=== PATIENT | male | born 1955 | race Caucasian/White ===

== ENCOUNTER 2016-11-29 14:58 | Inpatient (IN) | payer OTHER ==
[~2016-11-29] VITALS: Ht 177.8 cm; Wt 65.8 kg
[2016-11-29 15:02] VITALS: O2SAT 95
[2016-11-29 16:03] LABS: BENZODIAZEPINE, URINE NEG (NEG); COCAINE,URINE NEG (NEG); PHENCYCLIDINE, URINE NEG (NEG)
[2016-11-29] MEDS ORDERED: SERT50TA PO (16:05)
[2016-11-29] MEDS ORDERED: BUPR100T8 PO (16:05)
[2016-11-29 16:08] LABS: BASO % 0.4 %; BASO ABS # 0.02 K/uL (0-0.2); COMPLETE YES; EOS % 0.7 %; HEMATOCRIT 39.8 % (42-52); IG% 0.2 %; LYMPH % 18.9 %; LYMPH ABS # 1.06 K/uL (1.2-3.4); MEAN CELL VOLUME 88.1 fL (80-100); MEAN CORPUSCULAR HEMOGLOBIN 31.2 pg (25-34); MEAN CORPUSCULAR HGB CONC 35.4 g/dl (32-36); MONO % 8.9 %; NEUT % 70.9 %; PLATELET COUNT 138 K/uL (130-400); RED BLOOD COUNT 4.52 M/uL (4.7-6.1)
[2016-11-29 16:27] LABS: BUN/CREATININE RATIO 12.8 (10-20); CALCIUM 8.8 mg/dl (8.5-10.1); CREATININE 1.5 mg/dl (0.60-1.40); POTASSIUM 3.7 mmol/L (3.5-5.1)
[2016-11-29 16:37] LABS: ALB/GLOB RATIO 1.2 (0.9-2); THYROID STIMULATING HORMONE 2.41 uIu/ml (0.300-4.500)
[2016-11-29 17:22] LABS: ACETAMINOPHEN < 2 ug/ml (10-30)
[2016-11-29 17:29] LABS: URINE APPEARANCE CLEAR (CLEAR); URINE BILIRUBIN NEG (NEG); URINE COLOR YELLOW; URINE NITRITE NEG (NEG); URINE PH 6.5 (4.5-7.5); URINE SPECIFIC GRAVITY 1.006 (1.000-1.030); UROBILINOGEN NEG (NEG); ZZUR CULT IF INDIC CLEAN CATCH NO
[2016-11-29 17:30] LABS: MANUAL MICROSCOPIC REQUIRED? NO; REVIEW REQ? NO
[2016-11-29] MEDS ORDERED: BISMUTH SUBSALICYLATE PER ML OMNICELL CHARGE PO PRN (17:30)
[2016-11-29] MEDS ORDERED: ALUMINUM/MAGNESIUM SUSP 30 ML UDC PO PRN (17:30)
[2016-11-29] MEDS ORDERED: SODIUM CHLORIDE 0.65% NA SOLN 45 ML (OCEAN) PRN (17:30)
[2016-11-29] MEDS ORDERED: ACETAMINOPHEN 325 MG TAB PO PRN (17:30)
[2016-11-29] MEDS ORDERED: MAGNESIUM HYDROXIDE SUSP 30 ML UDC PO PRN (17:30)
[2016-11-29] MEDS ORDERED: RISPERIDONE 1 MG TAB PO ONE (17:30)
[2016-11-29] MEDS ORDERED: hydrOXYzine HCL 25 MG TAB PO PRN ×2 (17:30)
--- NOTE | 2016-11-29 17:36 | EMERGENCY ROOM VISIT NOTE ---
History Report prepared by Yanira: Duc Lopez Under the Supervision of: Dr. Joel San D.O. First contact with patient: 15:14 Chief Complaint: MENTAL HEALTH EVALUATION Stated Complaint: SUICIDAL THOUGHTS-CONOR History of Present Illness The patient is a 61 year old male who presents to the Emergency Room for a mental health evaluation. Last week, the patient went to his [facility] and received a lot of information about identity theft. Ever since then, he has been very paranoid and believes that someone has stolen his identity through his computer. He also believes that someone is spying on him as well. Because of this, he is having suicidal thoughts by cutting his wrists. He denies any abnormal physical symptoms at this time. He went to [place] today and received an US procedure, which the results of are not back. He was sent here by his therapist for further evaluation. Source of History: patient Onset: 1 week Position: other (Mental Health) Symptom Intensity: moderate Quality: other (Suicidal Ideation) Timing: worsening Note: He denies any abnormal physical symptoms. Review of Systems See HPI for pertinent positives & negatives. A total of 10 systems reviewed and were otherwise negative. Family History Omitted secondary to the patient's age. Social History Smoking Status: Never Smoker Smokeless Tobacco Use: Yes Alcohol Use: occasionally Drug Use: none Occupation Status: retired Current/Historical Medications Scheduled Bupropion (Wellbutrin Sr), 100 MG PO QAM Sertraline (Zoloft), 50 MG PO QAM Allergies Coded Allergies: No Known Allergies (Unverified , 11/29/16) Physical Exam Vital Signs Date Time Temp Pulse Resp B/P (MAP) Pulse Ox O2 Delivery O2 Flow Rate FiO2 11/29/16 15:02 36.6 64 18 110/67 95 Room Air Physical Exam CONSTITUTIONAL/VITAL SIGNS: Reviewed / noted above. GENERAL: Non-toxic in appearance. INTEGUMENTARY: Warm, dry, and Richards. HEAD: Normocephalic. EYES: without scleral icterus or trauma. ENT/OROPHARYNX: clear and moist. LYMPHADENOPATHY/NECK: Is supple without lymphadenopathy or meningismus. RESPIRATORY: Lungs clear and equal. CARDIOVASCULAR: Regular rate and rhythm. GI/ABDOMEN: Soft and nontender. No organomegaly or pulsatile mass. No rebound or guarding. Normal bowel sounds. EXTREMITIES: Warm and well perfused. BACK: No CVA tenderness. NEUROLOGICAL: Intact without focal deficits. PSYCHIATRIC: normal affect. Patient admits suicidal ideation with a plan. MUSCULOSKELETAL: Normally developed with good muscle tone. Medical Decision & Procedures Laboratory Results 11/29/16 15:50 Red Blood Count 4.52, Mean Corpuscular Volume 88.1, Mean Corpuscular Hemoglobin 31.2, Mean Corpuscular Hemoglobin Concent 35.4, Mean Platelet Volume 11.0, Neutrophils (%) (Auto) 70.9, Lymphocytes (%) (Auto) 18.9, Monocytes (%) (Auto) 8.9, Eosinophils (%) (Auto) 0.7, Basophils (%) (Auto) 0.4, Neutrophils # (Auto) 3.97, Lymphocytes # (Auto) 1.06, Monocytes # (Auto) 0.50, Eosinophils # (Auto) 0.04, Basophils # (Auto) 0.02 11/29/16 15:50 Test 11/29/16 15:30 11/29/16 15:50 Urine Color YELLOW Urine Appearance CLEAR (CLEAR) Urine pH 6.5 (4.5-7.5) Urine Specific Mccrory 1.006 (1.000-1.030) Urine Protein NEG (NEG) Urine Glucose (UA) NEG (NEG) Urine Ketones NEG (NEG) Urine Occult Blood NEG (NEG) Urine Nitrite NEG (NEG) Urine Bilirubin NEG (NEG) Urine Urobilinogen NEG (NEG) Urine Leukocyte Esterase NEG (NEG) Urine Opiates Screen NEG (NEG) Urine Methadone, Qualitative NEG (NEG) Urine Barbiturates NEG (NEG) Urine Phencyclidine (PCP) Level NEG (NEG) Ur Amphetamine/Methamphetamine NEG (NEG) MDMA (Ecstasy) Screen POS (NEG) Urine Benzodiazepines Screen NEG (NEG) Urine Cocaine Metabolite NEG (NEG) Urine Marijuana (THC) NEG (NEG) White Blood Count 5.60 K/uL (4.8-10.8) Red Blood Count 4.52 M/uL (4.7-6.1) Hemoglobin 14.1 g/dL (14.0-18.0) Hematocrit 39.8 % (42-52) Mean Corpuscular Volume 88.1 fL (80-100) Mean Corpuscular Hemoglobin 31.2 pg (25-34) Mean Corpuscular Hemoglobin Concent 35.4 g/dl (32-36) Platelet Count 138 K/uL (130-400) Mean Platelet Volume 11.0 fL (7.4-10.4) Neutrophils (%) (Auto) 70.9 % Lymphocytes (%) (Auto) 18.9 % Monocytes (%) (Auto) 8.9 % Eosinophils (%) (Auto) 0.7 % Basophils (%) (Auto) 0.4 % Neutrophils # (Auto) 3.97 K/uL (1.4-6.5) Lymphocytes # (Auto) 1.06 K/uL (1.2-3.4) Monocytes # (Auto) 0.50 K/uL (0.11-0.59) Eosinophils # (Auto) 0.04 K/uL (0-0.5) Basophils # (Auto) 0.02 K/uL (0-0.2) RDW Standard Deviation 40.5 fL (36.4-46.3) RDW Coefficient of Variation 12.6 % (11.5-14.5) Immature Granulocyte % (Auto) 0.2 % Immature Granulocyte # (Auto) 0.01 K/uL (0.00-0.02) Anion Gap 3.0 mmol/L (3-11) Est Creatinine Clear Calc Drug Dose 46.9 ml/min Estimated GFR () 56.6 Estimated GFR (Non- 48.8 BUN/Creatinine Ratio 12.8 (10-20) Calcium Level 8.8 mg/dl (8.5-10.1) Total Bilirubin 0.6 mg/dl (0.2-1) Aspartate Amino Transf (AST/SGOT) 43 U/L (15-37) Alanine Aminotransferase (ALT/SGPT) 31 U/L (12-78) Alkaline Phosphatase 54 U/L (45-117) Total Protein 6.9 gm/dl (6.4-8.2) Albumin 3.7 gm/dl (3.4-5.0) Globulin 3.2 gm/dl (2.5-4.0) Albumin/Globulin Ratio 1.2 (0.9-2) Thyroid Stimulating Hormone (TSH) 2.410 uIu/ml (0.300-4.500) Salicylates Level < 1.7 mg/dl (2.8-20) Acetaminophen Level < 2 ug/ml (10-30) Ethyl Alcohol mg/dL < 3.0 mg/dl (0-3) Laboratory results as stated above per my review. Medications Administered Medications (Trade) Dose Ordered Sig/Fredy Route Start Time Stop Time Status Last Admin Dose Admin Risperidone (Risperdal Tab) 1 mg NOW ONCE PO 11/29/16 17:30 11/29/16 17:31 11/29/16 17:26 1 MG ED Course 1514: Previous medical records were reviewed. The patient was evaluated in room A8. A complete history and physical examination was performed. 1720: Risperdal 1mg PO. 1730: Admitted to . Medical Decision Differential includes toxic ingestions, self-mutilation, suicidal ideation, suicide attempt, and depression. This is a 61-year-old male who presents to the ED with a chief complaint of some paranoia as well as suicidal thoughts. The patient is thinking about cutting his wrists. He states that he feels that his identity has been stolen. He was sent in by his therapist for psychiatric evaluation. The patient has no other significant complaints. He has not had drugs or alcohol recently. His exam was unremarkable. The patient is medically cleared for psychiatric evaluation. Accepted to 3 S. Medication Reconcilliation Current Medication List: was personally reviewed by me Blood Pressure Screening Patient's blood pressure: Normal blood pressure Blood pressure disposition: Did not require urgent referral Impression Primary Impression: Suicidal ideation Scribe Attestation The scribe's documentation has been prepared under my direction and personally reviewed by me in its entirety. I confirm that the note above accurately reflects all work, treatment, procedures, and medical decision making performed by me. Departure Information Dispostion Mental Health Acute Care Referrals No Doctor, Assigned (PCP) Forms HOME CARE DOCUMENTATION FORM, IMPORTANT VISIT INFORMATION Patient Instructions My [facility]
[2016-11-29] MEDS ORDERED: NURSING VERBAL MED ORDER ONE (17:45)
[2016-11-29] MEDS ORDERED: NICOTINE POLACRILEX 2 MG GUM MT PRN (18:00)
[2016-11-29 18:01] VITALS: BP 110/67; PULSE 72; TEMP 36.6; Ht 177.8 cm; Wt 65.8 kg
[2016-11-29] MEDS: NICOTINE 14 MG/24 HR TDSY TD SCH (19:01)
[2016-11-30 06:23] VITALS: BP_SYST 105; BP_SYST 94; BP_DIAS 62; BP_DIAS 68; PULSE 59; PULSE 76; TEMP 36.7
[2016-11-30] MEDS ORDERED: BuPROPion SR 100 MG TABCR PO SCH (09:00)
[2016-11-30] MEDS: NICOTINE 14 MG/24 HR TDSY TD SCH (09:15)
[2016-11-30] MEDS: SERTRALINE HCL 50 MG TAB PO SCH (09:15)
--- NOTE | 2016-11-30 10:51 | Medical Student: BHU Only ---
Psychiatric Evaluation Chief Complaint "I'm concerned about being hacked and getting my identity stolen." History of Present Illness Patient came to the ED yesterday brought to the hospital by his [id number]-tyv, who lives with he and his . He was recommended to come in yesterday after seeing his nurse practitioner at [place]. He is a poor historian but mentions a recent history about being hacked and concerned about someone stealing his identity and social security number. He mentions he has never done a credit check. He also developed thoughts of suicide on 2-3 days ago and had a plan to cut his wrists. He admits to being anxious recently, and mentions that he has been "fidgety, and unable to sleep". Past Psychiatric History Prior OP Treatment: Unknown, has been on [place] Prior Psych Hospitalizations: Yes, 2-3 times in [place], 1 time in [place] Access to a Gun: No Suicide Attempts: First; none previously Past Medication Trials: Unknown Past Medical/Surgical History (1) Anemia (2) Stage 3 Kidney disease Allergies Allergies: Patient said no known allergies. Home Medications Scheduled Bupropion (Wellbutrin Sr), 100 MG PO QAM Sertraline (Zoloft), 50 MG PO QAM Family History Mother had cancer Alcohol Use Alcohol Use In Past 12 Months: Drinks 1 beer a week, "on Fridays with Pizza" Smoking Use Smoking Status: Does not smoke Substance History Denied recent history of illicit substance abuse or prescription drug abuse. Personal History Lives in: [place] (near [place]) Work History: Retired driver examiner Relationship History: Children: No kids Spiritual Affiliation: Yazdanism/Baptism Legal History: Unknown Psychological Trauma History: No Examination Physical Examination Exam performed by Dr. Joel San D.O. in the emergency department yesterday has been reviewed and accepted as medical clearance for our unit. Mental Examination During interview pt is: cooperative Appearance: fair groomed Eye contact is: good Motor behavior is: slightly restless Speech: normal volume, normal tone, slow rate Affect: congruent with mood Mood is: anxious Thought process: goal directed, minimal in quantity Thought content: reality based, some minor paranoia Suicidal thought are: absent today Homicidal thoughts are: Absent Hallucinations: No auditory or visual hallucinations Cognition: 3 of 5 on mini-cog assessment Intelligence estimated to be: average Insight: poor Judgement: poor Inventory Assets Strengths: has interests, enjoys fishing with , active with going to taoism Needs: poor memory of diagnoses and past medications Risk Factors Assessment : Yes /single/: No Higher / Fall in social status: No Access to guns: No Health problems: Yes Mental Health Diagnoses: Yes Substance use disorders: No Previous attempt: Yes Previous psychiatric stay: Yes Hopelessness: No Smoker: No Protective Factors Assessment Zoroastrian beliefs: Yes : Yes Responsible for young children: No Employed: No Stable relationships: Yes Supportive family: Yes Good rapport with provider: Yes Assessment/Plan (1) Schizoaffective disorder, depressive features continue risperidone treatment order lipid panel and fasting blood glucose level Other: (2) Stage 3 renal disease (3) Anemia Date of Service: Nov 30, 2016.
--- NOTE | 2016-11-30 13:17 | Psychiatric History & Physical ---
History Date of Service Nov 30, 2016. Identifying Data Jhonathan Henriquez is a 61-year-old male who currently lives in [facility] with his and [id number]. Jhonathan Henriquez was admitted on a 201 voluntary commitment. Patient is admitted from the ED, brought by family at the recommendation of [place]. The patient is a limited historian. Chief Complaint "I was too focussed on computers". History of Present Illness The patient has a history of schizoaffective disorder, last hospitalization was over 3 years ago. His [id number] confirmed that he was maintained on Invega trinza for some time but that it was discontinued over the holidays as he seemed flat, loss of interest in yard work and fishing in the fall. He initially appeared more spontaneous. He states his worries tended to increase, other than worrying about having a car accident he worries about identity theft. He goes to a local [employer] center once a week and there was a presentation there about identity theft. Since then he has perseverated on getting hacked and his social security number being stolen. He wants to check his credit but doesn't know how. He was on line researching this and mistook pop-up ads for hackers sending him messages. He has become so distraught from the paranoia that he admits he had thoughts of suicide on 2-3 days ago and had a plan to cut his wrists. He admits to being anxious recently, and mentions that he has been "fidgety, and unable to sleep", the latter for up to 3 days at a time. 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), Risperdal (helped) Past Medical/Surgical History History of Concussion/Seizure: No (1) Stage 3 chronic kidney disease no diabetes or hyperlipidemia or known cardiovascular disease Allergies Allergies: Coded Allergies: No Known Allergies (Unverified , 11/29/16) Home Medications Scheduled Bupropion (Wellbutrin Sr), 100 MG PO QAM Sertraline (Zoloft), 50 MG PO QAM Family History History of Suicide: No History of Substance Abuse: No Psychiatric History: No Alcohol Use Alcohol Use In Past 12 Months: Yes (drinks 1 beer on Fridays with pizza) AUDIT Total Score: 1 Smoking Use Smoking Status: Never Smoker Substance History denied Personal History Lives in: [facility] Education: other (intellectual disability) Work History: retired stacker driver Relationship History: Children: none Spiritual Affiliation: rastafari/sikh Legal History: none Psychological Trauma History: Denies Hx Traumatic Event Review of Systems Psych: denies symptoms other than stated above Constitutional: denied Cardiovascular: denied GI: denied Neurologic: denied Remainder of 10 body systems also reviewed and denied other than noted above. Examination Physical Examination A physical exam was performed in the ER by Dr. Harry prior to admission to the unit. I accept that physical as medical clearance for the inpatient physical exam. Vital Signs Vital Signs Past 12 Hours Date Time Temp Pulse Resp B/P (MAP) Pulse Ox O2 Delivery O2 Flow Rate FiO2 11/30/16 06:23 36.7 59 18 105/68 76 94/62 Laboratory Results Last 24 Hours Test 11/29/16 15:30 11/29/16 15:50 Urine Color YELLOW Urine Appearance CLEAR Urine pH 6.5 Urine Specific Dubois 1.006 Urine Protein NEG Urine Glucose (UA) NEG Urine Ketones NEG Urine Occult Blood NEG Urine Nitrite NEG Urine Bilirubin NEG Urine Urobilinogen NEG Urine Leukocyte Esterase NEG Urine Opiates Screen NEG Urine Methadone, Qualitative NEG Urine Barbiturates NEG Urine Phencyclidine (PCP) Level NEG Ur Amphetamine/Methamphetamine NEG MDMA (Ecstasy) Screen POS Urine Benzodiazepines Screen NEG Urine Cocaine Metabolite NEG Urine Marijuana (THC) NEG White Blood Count 5.60 K/uL Red Blood Count 4.52 M/uL Hemoglobin 14.1 g/dL Hematocrit 39.8 % Mean Corpuscular Volume 88.1 fL Mean Corpuscular Hemoglobin 31.2 pg Mean Corpuscular Hemoglobin Concent 35.4 g/dl Platelet Count 138 K/uL Mean Platelet Volume 11.0 fL Neutrophils (%) (Auto) 70.9 % Lymphocytes (%) (Auto) 18.9 % Monocytes (%) (Auto) 8.9 % Eosinophils (%) (Auto) 0.7 % Basophils (%) (Auto) 0.4 % Neutrophils # (Auto) 3.97 K/uL Lymphocytes # (Auto) 1.06 K/uL Monocytes # (Auto) 0.50 K/uL Eosinophils # (Auto) 0.04 K/uL Basophils # (Auto) 0.02 K/uL RDW Standard Deviation 40.5 fL RDW Coefficient of Variation 12.6 % Immature Granulocyte % (Auto) 0.2 % Immature Granulocyte # (Auto) 0.01 K/uL Sodium Level 140 mmol/L Potassium Level 3.7 mmol/L Chloride Level 106 mmol/L Carbon Dioxide Level 31 mmol/L Anion Gap 3.0 mmol/L Blood Urea Nitrogen 19 mg/dl Creatinine 1.50 mg/dl Est Creatinine Clear Calc Drug Dose 46.9 ml/min Estimated GFR () 56.6 Estimated GFR (Non- 48.8 BUN/Creatinine Ratio 12.8 Random Glucose 80 mg/dl Calcium Level 8.8 mg/dl Total Bilirubin 0.6 mg/dl Aspartate Amino Transf (AST/SGOT) 43 U/L Alanine Aminotransferase (ALT/SGPT) 31 U/L Alkaline Phosphatase 54 U/L Total Protein 6.9 gm/dl Albumin 3.7 gm/dl Globulin 3.2 gm/dl Albumin/Globulin Ratio 1.2 Thyroid Stimulating Hormone (TSH) 2.410 uIu/ml Salicylates Level < 1.7 mg/dl Acetaminophen Level < 2 ug/ml Ethyl Alcohol mg/dL < 3.0 mg/dl Mental Examination During interview pt is: alert and oriented Appearance: appropriately dressed, appropriately groomed Eye contact is: fair Motor behavior is: no abnormal motor movements Speech: normal in rate, rhythm & volume Affect: constricted Mood is: other Thought process: perseveration, concrete Thought content: paranoid, delusions, ideas of reference Suicidal thought are: denied Homicidal thoughts are: denied Hallucinations: denies auditory, denies visual Cognition: language grossly intact, other (memory seems poor) Intelligence estimated to be: below average Insight: limited Judgement: limited Impression / Recommendations Impression 61 yo male with prior history of schizoaffective disorder, bipolar type who is exhibiting mixed picture on antidepressants alone following discontinuation of Invega q3 month injections in March. He has intellectual disability at baseline and in addition to being paranoid may have a limited/concrete understanding of the internet. He received Risperdal last pm in ED and tolerated well and slept. Inventory Assets Strengths: supportive family, no recent hospitalizations, amenable to medications Needs: resume antipsychotic medication, ongoing monitoring of psychiatric condition, need to rule out cognitive impairment Risk Factors Assessment Male: Yes : Yes Access to guns: No Protective Factors Assessment Evangelical beliefs: Yes : Yes Employed: No Supportive family: Yes Recommendations (1) Schizoaffective disorder, bipolar type The patient is admitted to [facility] ([facility]) on q 15 min checks (behavioral with suicide precautions) for safety. The patient will participate in group, recreational and milieu therapies and will be offered additional individual and family sessions as clinically appropriate. Risks/benefits/alternative treatments were reviewed re: antipsychotics for mood and/or psychosis. Discussion included but was not limited to metabolic side effects, risks of TD and suicidal thoughts. Baseline AIMS=0. Fasting glucose and lipid panel ordered for baseline monitoring. He agreed to restart Risperdal acutely, depending on response will consider conversion to Invega to resume injections, likely family preference to avoid. will hold Wellbutrin for now given dopaminergic properties and anxiety, also risk of rajani with 2 antidepressants as patient restarts mood stabilizer. obtain outpatient and previous inpatient records (2) Stage 3 chronic kidney disease cr 1.5, monitored after patient stopped lithium CPT Code Initial Hospital Care: [id number]
[2016-11-30] MEDS ORDERED: RISPERIDONE ODT 0.5MG PO PRN (14:45)
[2016-11-30] MEDS: RISPERIDONE 1 MG TAB PO SCH (21:10)
[2016-12-01 07:08] VITALS: BP 101/66; PULSE 57; PULSE 81; TEMP 36.4
[2016-12-01] MEDS: SERTRALINE HCL 50 MG TAB PO SCH (08:28)
[2016-12-01] MEDS: NICOTINE 14 MG/24 HR TDSY TD SCH (08:28)
[2016-12-01] MEDS ORDERED: SERTRALINE HCL 50 MG TAB PO ONE (11:45)
--- NOTE | 2016-12-01 12:53 | Psychiatric Progress Notes ---
Progress Note Date of Service Dec 01, 2016. Interval History 61 yo male with prior history of schizoaffective disorder, bipolar type who is exhibiting mixed picture on antidepressants alone following discontinuation of Invega q3 month injections in March. He has intellectual disability at baseline and in addition to being paranoid may have a limited/concrete understanding of the internet. He was admitted on 11/29/16 on a 201 voluntary commitment and was restarted on Risperdal. Chief Complaint "I was worried last night". Subjective Patient was seen & assessed interval progress reviewed with Nursing. No issues per staff overnight, cooperative with groups and meds. He states that he worries that his roommate might try to harm him for "turning him in" for having a spoon. Reviewed that staff routinely do safety checks and that they would not tell another patient who "told". He doesn't have access to computers here and feels less distressed re: his identity being stolen. He then changed topics to his 's history of sexual dysfunction. He is rather concrete in conversation but clearly what appeared to be memory issues initially are likely related to his intellectual disability. Review of Systems Psych: denies symptoms other than stated above Constitutional: denied Cardiovascular: denied GI: denied Neurologic: denied Remainder of 10 body systems also reviewed and denied other than noted above. Sleep Information Total Hours of Sleep: 6.50 Meal Information Percent of Breakfast Consumed: 100 Percent of Lunch Consumed: 100 Percent of Dinner Consumed: 100 Mental Status Exam During interview pt is: alert and oriented Appearance: appropriately dressed, appropriately groomed Eye contact is: fair Motor behavior is: no abnormal motor movements Speech: normal in rate, rhythm & volume Affect: anxious Mood is: anxious Thought process: concrete Thought content: paranoid Suicidal thought are: denied Homicidal thoughts are: denied Hallucinations: denies auditory, denies visual Cognition: language grossly intact, other (memory seems poor) Intelligence estimated to be: below average Insight: limited Judgement: limited Summary of Past History reviewed records on 12/01 from [facility] hospitalization in 2013 that lists f /u provider as [facility] and intake appt from [facility]. Patient was hospitalized at [place] in mid 90's; otherwise in his thirties in [place]. He has previously been tried on lithium, Seroquel (restless legs), Neurontin (for restless legs), Zyprexa and Haldol in addition to the buproprion and low dose Zoloft that he was admitted on. Impression 61 yo male with prior history of schizoaffective disorder, bipolar type who is exhibiting mixed picture on antidepressants alone following discontinuation of Invega q3 month injections in March. He has intellectual disability at baseline and in addition to being paranoid may have a limited/concrete understanding of the internet. He received Risperdal last pm in ED and tolerated well and slept. Plan (1) Schizoaffective disorder, bipolar type 11/30--The patient is admitted to [facility] ([facility] unit) on q 15 min checks (behavioral with suicide precautions) for safety. The patient will participate in group, recreational and milieu therapies and will be offered additional individual and family sessions as clinically appropriate. Risks/benefits/alternative treatments were reviewed re: antipsychotics for mood and/or psychosis. Discussion included but was not limited to metabolic side effects, risks of TD and suicidal thoughts. Baseline AIMS=0. Fasting glucose and lipid panel ordered for baseline monitoring. He agreed to restart Risperdal acutely, depending on response will consider conversion to Invega to resume injections, likely family preference to avoid. will hold Wellbutrin for now given dopaminergic properties and anxiety, also risk of rajani with 2 antidepressants as patient restarts mood stabilizer. obtain outpatient and previous inpatient records 12/01--titrate Zoloft for anxiety, consider additional titration of Risperdal, no current evidence of EPS/akathisia, baseline AIMS=0, lipid panel in am (2) Stage 3 chronic kidney disease cr 1.5, monitored after patient stopped lithium Discharge / Aftercare Planning Primary Care Physician: Name: Dr Gonzalez Psychiatrist: Name: Elaine MENDOZA Specialist: Name: Dr Hartman-chief nurse anesthetist Visit Code E&M Code: 46641 Inventory Assets Strengths: supportive family, no recent hospitalizations, amenable to medications Needs: resume antipsychotic medication, ongoing monitoring of psychiatric condition, need to rule out cognitive impairment Risk Factors Assessment Male: Yes : Yes Protective Factors Assessment Gnosticist beliefs: Yes : Yes Employed: No Supportive family: Yes Data Vital Signs Last 24 Hrs: Date Time Temp Pulse Resp B/P (MAP) Pulse Ox O2 Delivery O2 Flow Rate FiO2 12/01/16 07:08 36.4 57 16 101/66 81 Meds Administered Last 24 Hrs: Meds Administered (Past 24Hrs) Medications (Trade) Dose Ordered Sig/Fredy Route Start Time Stop Time Status Last Admin Dose Admin Risperidone (Risperdal Tab) 1 mg NOW ONCE PO 11/29/16 17:30 11/29/16 17:34 DC 11/29/16 17:26 1 MG Acetaminophen (Tylenol Tab) 650 mg Q4H PRN PO 11/29/16 17:30 12/29/16 17:29 11/29/16 19:10 650 MG Bupropion HCl (Wellbutrin-Sr Tab) 100 mg QAM PO 11/30/16 09:00 11/30/16 14:47 DC 11/30/16 09:15 100 MG Sertraline HCl (Zoloft Tab) 50 mg QAM PO 11/30/16 09:00 12/01/16 11:33 DC 12/01/16 08:28 50 MG Nicotine (Nicoderm Cq 14MG Patch) 1 patch QAM TD 11/29/16 18:00 12/29/16 17:59 12/01/16 08:28 1 PATCH Miscellaneous (Remove Nicoderm Patch) 1 ea QAM N/A 11/30/16 09:00 12/30/16 08:59 12/01/16 08:28 1 EA Risperidone (Risperdal Tab) 1 mg HS PO 11/30/16 22:00 12/30/16 21:59 11/30/16 21:10 1 MG Sertraline HCl (Zoloft Tab) 25 mg ONE ONCE PO 12/01/16 11:45 12/01/16 11:48 DC 12/01/16 12:24 25 MG
[2016-12-01] MEDS: RISPERIDONE 1 MG TAB PO SCH (22:38)
[2016-12-02 07:05] VITALS: BP_SYST 102; BP_SYST 98; BP_DIAS 65; PULSE 66; PULSE 76; TEMP 36.6
[2016-12-02] MEDS: NICOTINE 14 MG/24 HR TDSY TD SCH (07:16)
[2016-12-02] MEDS: SERTRALINE HCL 50 MG TAB PO SCH (07:17)
--- NOTE | 2016-12-02 15:25 | Psychiatric Progress Notes ---
Progress Note Date of Service Dec 02, 2016. Interval History 61 yo male with prior history of schizoaffective disorder, bipolar type who is exhibiting mixed picture on antidepressants alone following discontinuation of Invega q3 month injections in March. He has intellectual disability at baseline and in addition to being paranoid may have a limited/concrete understanding of the internet. He was admitted on 11/29/16 on a 201 voluntary commitment and was restarted on Risperdal. Chief Complaint "I'm better today". Subjective Patient was seen & assessed interval progress reviewed with Nursing. Good visit with a family member yesterday who was able to provide reassurance around pop-up ads. He no longer thinks he was being targeted. He feels less anxious but is embarrassed that he mistakenly ate someone else's meal last pm. Staff feel he becomes frustrated due to memory difficulties. Review of Systems Psych: denies symptoms other than stated above Constitutional: denied Cardiovascular: denied GI: denied Neurologic: denied Remainder of 10 body systems also reviewed and denied other than noted above. Sleep Information Total Hours of Sleep: 6.50 Meal Information Percent of Breakfast Consumed: 100 Percent of Lunch Consumed: 100 Percent of Dinner Consumed: 100 Mental Status Exam During interview pt is: alert and oriented Appearance: appropriately dressed, appropriately groomed Eye contact is: fair Motor behavior is: no abnormal motor movements Speech: normal in rate, rhythm & volume Affect: euthymic Mood is: anxious Thought process: concrete Thought content: reality based without delusions Suicidal thought are: denied Homicidal thoughts are: denied Hallucinations: denies auditory, denies visual Cognition: language grossly intact, other (memory seems poor) Intelligence estimated to be: below average Insight: limited Judgement: limited Summary of Past History reviewed records on 12/01 from [facility] hospitalization in 2013 that lists f /u provider as [facility] and intake appt from [facility]. Patient was hospitalized at [place] in mid 90's; otherwise in his thirties in [place]. He has previously been tried on lithium, Seroquel (restless legs), Neurontin (for restless legs), Zyprexa and Haldol in addition to the buproprion and low dose Zoloft that he was admitted on. Impression 61 yo male with prior history of schizoaffective disorder, bipolar type who is exhibiting mixed picture on antidepressants alone following discontinuation of Invega q3 month injections in March. He has intellectual disability at baseline and in addition to being paranoid may have a limited/concrete understanding of the internet. He received Risperdal last pm in ED and tolerated well and slept. Plan (1) Schizoaffective disorder, bipolar type 11/30--The patient is admitted to [facility] ([facility]) on q 15 min checks (behavioral with suicide precautions) for safety. The patient will participate in group, recreational and milieu therapies and will be offered additional individual and family sessions as clinically appropriate. Risks/benefits/alternative treatments were reviewed re: antipsychotics for mood and/or psychosis. Discussion included but was not limited to metabolic side effects, risks of TD and suicidal thoughts. Baseline AIMS=0. Fasting glucose and lipid panel ordered for baseline monitoring. He agreed to restart Risperdal acutely, depending on response will consider conversion to Invega to resume injections, likely family preference to avoid. will hold Wellbutrin for now given dopaminergic properties and anxiety, also risk of rajani with 2 antidepressants as patient restarts mood stabilizer. obtain outpatient and previous inpatient records 12/01--titrate Zoloft for anxiety, consider additional titration of Risperdal, no current evidence of EPS/akathisia, baseline AIMS=0, lipid panel in am 12/02--lipid panel and fasting glucose reviewed/normal. (2) Stage 3 chronic kidney disease cr 1.5, monitored after patient stopped lithium Discharge / Aftercare Planning Primary Care Physician: Name: Dr Gonzalez Psychiatrist: Name: Elaine MENDOZA Specialist: Name: Dr Hartman-senior financial reporting accountant Visit Code E&M Code: 08053 Inventory Assets Strengths: supportive family, no recent hospitalizations, amenable to medications Needs: resume antipsychotic medication, ongoing monitoring of psychiatric condition, need to rule out cognitive impairment Risk Factors Assessment Male: Yes : Yes Protective Factors Assessment Religion beliefs: Yes : Yes Employed: No Supportive family: Yes Data Vital Signs Last 24 Hrs: Date Time Temp Pulse Resp B/P (MAP) Pulse Ox O2 Delivery O2 Flow Rate FiO2 12/02/16 07:05 36.6 66 16 102/65 76 98/65 Meds Administered Last 24 Hrs: Meds Administered (Past 24Hrs) Medications (Trade) Dose Ordered Sig/Fredy Route Start Time Stop Time Status Last Admin Dose Admin Risperidone (Risperdal Tab) 1 mg HS PO 11/30/16 22:00 12/30/16 21:59 12/01/16 22:38 1 MG Sertraline HCl (Zoloft Tab) 75 mg QAM PO 12/02/16 09:00 12/30/16 08:59 12/02/16 07:17 75 MG Sertraline HCl (Zoloft Tab) 25 mg ONE ONCE PO 12/01/16 11:45 12/01/16 11:48 DC 12/01/16 12:24 25 MG Lab Results Last 24 Hrs: Last 24 Hours Test 12/02/16 06:28 Fasting Glucose 87 mg/dl Triglycerides Level 93 mg/dl Cholesterol Level 131 mg/dl HDL Cholesterol 33 mg/dl LDL Cholesterol, Calculated 79 mg/dl VLDL Cholesterol, Calculated 19 mg/dl Cholesterol/HDL Ratio 4.0
[2016-12-02] MEDS: RISPERIDONE 1 MG TAB PO SCH (21:11)
[2016-12-03 07:11] VITALS: BP_SYST 96; BP_DIAS 62; BP_DIAS 65; PULSE 70; PULSE 89; TEMP 36.3
[2016-12-03] MEDS: SERTRALINE HCL 50 MG TAB PO SCH (07:57)
[2016-12-03] MEDS: NICOTINE 14 MG/24 HR TDSY TD SCH (07:57)
--- NOTE | 2016-12-03 15:29 | Psychiatric Progress Notes ---
Progress Note Date of Service Dec 03, 2016. Interval History 61 yo male with prior history of schizoaffective disorder, bipolar type who is exhibiting mixed picture on antidepressants alone following discontinuation of Invega q3 month injections in March. He has intellectual disability at baseline and in addition to being paranoid may have a limited/concrete understanding of the internet. He was admitted on 11/29/16 on a 201 voluntary commitment and was restarted on Risperdal. Chief Complaint "I'm nervous about my meeting". Subjective Patient was seen & assessed interval progress reviewed with Nursing. Remains cooperative with unit routines. Tolerating medications. Visited with and sister in law. He denies paranoia related to the computer, completed a safety plan (much includes fishing) but isn't sure how he would redirect topics if came up/upsetting at [facility]. When asked about paranoia, he only stated that he felt uncomfortable kissing his kip in front of the cameras. He added that he is worried about the lapse in her medical assistance. Review of Systems Psych: denies symptoms other than stated above Constitutional: denied Cardiovascular: denied GI: denied Neurologic: denied Remainder of 10 body systems also reviewed and denied other than noted above. Sleep Information Total Hours of Sleep: 6.00 Meal Information Percent of Breakfast Consumed: 100 Percent of Lunch Consumed: 100 Percent of Dinner Consumed: 100 Mental Status Exam During interview pt is: alert and oriented Appearance: appropriately dressed, appropriately groomed Eye contact is: fair Motor behavior is: no abnormal motor movements Speech: normal in rate, rhythm & volume Affect: euthymic Mood is: anxious Thought process: concrete Thought content: reality based without delusions Suicidal thought are: denied Homicidal thoughts are: denied Hallucinations: denies auditory, denies visual Cognition: language grossly intact, other (memory seems poor) Intelligence estimated to be: below average Insight: limited Judgement: limited Summary of Past History reviewed records on 12/01 from [facility] hospitalization in 2013 that lists f /u provider as [facility] and intake appt from [facility]. Patient was hospitalized at [place] in mid 90's; otherwise in his thirties in [place]. He has previously been tried on lithium, Seroquel (restless legs), Neurontin (for restless legs), Zyprexa and Haldol in addition to the buproprion and low dose Zoloft that he was admitted on. Impression 61 yo male with prior history of schizoaffective disorder, bipolar type who is exhibiting mixed picture on antidepressants alone following discontinuation of Invega q3 month injections in March. He has intellectual disability at baseline and in addition to being paranoid may have a limited/concrete understanding of the internet. He received Risperdal last pm in ED and tolerated well and slept. Plan (1) Schizoaffective disorder, bipolar type 11/30--The patient is admitted to [facility] ([facility] mental health unit) on q 15 min checks (behavioral with suicide precautions) for safety. The patient will participate in group, recreational and milieu therapies and will be offered additional individual and family sessions as clinically appropriate. Risks/benefits/alternative treatments were reviewed re: antipsychotics for mood and/or psychosis. Discussion included but was not limited to metabolic side effects, risks of TD and suicidal thoughts. Baseline AIMS=0. Fasting glucose and lipid panel ordered for baseline monitoring. He agreed to restart Risperdal acutely, depending on response will consider conversion to Invega to resume injections, likely family preference to avoid. will hold Wellbutrin for now given dopaminergic properties and anxiety, also risk of rajani with 2 antidepressants as patient restarts mood stabilizer. obtain outpatient and previous inpatient records 12/01--titrate Zoloft for anxiety, consider additional titration of Risperdal, no current evidence of EPS/akathisia, baseline AIMS=0, lipid panel in am 12/02--lipid panel and fasting glucose reviewed/normal. 12/03--titrate Zoloft to 100 mg for ease of dosing and residual symptoms. (2) Stage 3 chronic kidney disease cr 1.5, monitored after patient stopped lithium Discharge / Aftercare Planning Primary Care Physician: Name: Dr Gonzalez Psychiatrist: Name: Elaine MENDOZA Specialist: Name: Dr Hartman-human resources file clerk Visit Code E&M Code: 76188 Inventory Assets Strengths: supportive family, no recent hospitalizations, amenable to medications Needs: resume antipsychotic medication, ongoing monitoring of psychiatric condition, need to rule out cognitive impairment Risk Factors Assessment Male: Yes : Yes Protective Factors Assessment Hinduism beliefs: Yes : Yes Employed: No Supportive family: Yes Data Vital Signs Last 24 Hrs: Date Time Temp Pulse Resp B/P (MAP) Pulse Ox O2 Delivery O2 Flow Rate FiO2 12/03/16 07:11 36.3 70 16 96/62 89 96/65 Meds Administered Last 24 Hrs: Meds Administered (Past 24Hrs) Medications (Trade) Dose Ordered Sig/Fredy Route Start Time Stop Time Status Last Admin Dose Admin Sertraline HCl (Zoloft Tab) 75 mg QAM PO 12/02/16 09:00 12/03/16 13:47 DC 12/03/16 07:57 75 MG
[2016-12-03] MEDS: RISPERIDONE 1 MG TAB PO SCH (21:23)
[2016-12-04 06:48] VITALS: BP 101/66; PULSE 66; TEMP 36.6
[2016-12-04] MEDS: NICOTINE 14 MG/24 HR TDSY TD SCH (08:16)
[2016-12-04] MEDS ORDERED: SERTRALINE HCL 50 MG TAB PO SCH (09:00)
[2016-12-04] MEDS ORDERED: NICO14DI5 TD (10:30)
[2016-12-04] MEDS ORDERED: SERT-234 PO (10:30)
[2016-12-04] MEDS ORDERED: RSP1 PO (10:30)
--- NOTE | 2016-12-04 10:42 | Discharge Instructions ---
Discharge Information Report Includes Report will include the: Discharge Instructions & Summary Admission Admission Date / Time: Nov 29, 2016 at 17:48 Reason for Admission: Schizoaffective Disorder Discharge Discharge Diagnosis / Problem: Schizoaffective disorder Condition at Discharge: Good Discharge Goals Goal(s): Decrease discomfort, Improve disease control, Prevent Disease Progression Activity Recommendations Activity Limitations: resume your previous activity . Instructions / Follow-Up Instructions / Follow-Up . SPECIAL CARE INSTRUCTIONS: 1. Follow through with your scheduled aftercare appointments. If unable to keep an appointment, please call to reschedule. 2. Take your medication only as prescribed. Medication should not be changed or stopped without the approval of your doctor. In the event of worsening symptoms or concerns about side effects, contact your doctor immediately. 3. Utilize new healthy coping skills, anger management skills, and stress management skills learned during your hospitalization. Journal feelings and process them with a support person. Identify stressors or situations that may result in relapse, deterioration or inappropriate behaviors and develop a plan to deal with those issues. 4. If your coping skills are ineffective and you are in crisis, contact your outpatient providers for direction. If unable to reach your providers, please call the CAN HELP LINE AT or go to the closest Emergency Room. 5. Avoid alcohol and un-prescribed drugs. 6. You have been provided with the Mental Health Advance Directives Pamphlet for your review. AFTERCARE APPOINTMENTS: * Please call your insurance company prior to your scheduled appointment to confirm your aftercare providers are covered. Take your insurance information to your appointments. . Discharge / Aftercare Planning Primary Care Physician: Name: Dr Gonzalez Date of Appointment: Dec 11, 2016 Time of Appointment: 1:00pm Psychiatrist: Name: Elaine Brian PA-C Date of Appointment: Dec 25, 2016 Time of Appointment: 9:30am Specialist: Name: Dr Hartman-head of visual merchandising . Follow-Up Care Plan for Follow-Up Care: Jhonathan will return to see Elaine TRIPP on 12/25/16 Current Hospital Diet Patient's current hospital diet: Regular Diet Discharge Diet Recommended Diet: Regular Diet Procedures Procedures Performed: No Pending Studies Pending Studies at Discharge: No Medical Emergencies . Who to Call and When: Medical Emergencies: For questions or emergencies related to your hospital stay, please contact the Inpatient Behavioral Health Unit at [phone]. A baseball winder is on-call 22/10 for the Behavioral Health Unit for emergencies At any time you feel your situation is an emergency, you may also call 911 immediately. . Non-Emergent Contact Non-Emergency issues call your: Primary Care Provider, Psychiatrist Advance Directives Existing Advance Directive: No Do You Have an Existing Mental: No Existing Living Will: No Existing Power of Reeling And Tubing Machine Operator: No Advance Directives Info Given: To Pt/S.O. Advance Directives Reason: Declines as Mental Health Visit. Discharge Summary Admission HPI Per the Admitting provider: The patient has a history of schizoaffective disorder, last hospitalization was over 3 years ago. His [id number] confirmed that he was maintained on Invega trinza for some time but that it was discontinued over the holidays as he seemed flat, loss of interest in yard work and fishing in the fall. He initially appeared more spontaneous. He states his worries tended to increase, other than worrying about having a car accident he worries about identity theft. He goes to a local senior center once a week and there was a presentation there about identity theft. Since then he has perseverated on getting hacked and his social security number being stolen. He wants to check his credit but doesn't know how. He was on line researching this and mistook pop-up ads for hackers sending him messages. He has become so distraught from the paranoia that he admits he had thoughts of suicide on 2-3 days ago and had a plan to cut his wrists. He admits to being anxious recently, and mentions that he has been "fidgety, and unable to sleep", the latter for up to 3 days at a time. Hospital Course (1) Schizoaffective disorder, bipolar type 11/30--The patient is admitted to [facility] ([facility] unit) on q 15 min checks (behavioral with suicide precautions) for safety. The patient will participate in group, recreational and milieu therapies and will be offered additional individual and family sessions as clinically appropriate. Risks/benefits/alternative treatments were reviewed re: antipsychotics for mood and/or psychosis. Discussion included but was not limited to metabolic side effects, risks of TD and suicidal thoughts. Baseline AIMS=0. Fasting glucose and lipid panel ordered for baseline monitoring. He agreed to restart Risperdal acutely, depending on response will consider conversion to Invega to resume injections, likely family preference to avoid. will hold Wellbutrin for now given dopaminergic properties and anxiety, also risk of rajani with 2 antidepressants as patient restarts mood stabilizer. obtain outpatient and previous inpatient records 12/01--titrate Zoloft for anxiety, consider additional titration of Risperdal, no current evidence of EPS/akathisia, baseline AIMS=0, lipid panel in am 12/02--lipid panel and fasting glucose reviewed/normal. 12/03--titrate Zoloft to 100 mg for ease of dosing and residual symptoms. (2) Stage 3 chronic kidney disease cr 1.5, monitored after patient stopped lithium Risk Factors Assessment Male: Yes : Yes Protective Factors Assessment Islam beliefs: Yes : Yes Employed: No Supportive family: Yes Day of Discharge Assessment COURSE OF HOSPITALIZATION: The patient was on our unit for 5 days. His medications were adjusted to include DC of Wellbutrin in favor of increasing Zoloft to 100 mg. daily. Risperdal 1 mg HS was started to address his delusions , which included feeling that his identity was being stolen, an idea that started after he heard a talk on this subject at the local [facility]. During his hospitalization he was compliant with meds and programming. His mood gradually improved and delusions abated. He was provided a nicotine patch for smoking cessation and provided appropriate counseling, and will be sent home with a prescription for nicotine patches. A family meeting will be held with his and his sister in law today, and the patient is asking for discharge following this meeting. DAY OF DISCHARGE ASSESSMENT: The patient is reporting good mood. He no longer believes that his identity has been stolen. He denies aud/vis hallucinations and denies SI/HI. Today he is dressed in pajama pants and a shirt, wearing glasses. Gait and station are WNL. Eye contact is good, affect is restricted but able to smile. Speech is of normal rate volume and tone. Thoughts are organized and goal directed, and without evidence of thought disorder. Recent/ remote memory are intact per conversation. Intelligence is estimated to be below average. Insight and judgement are improved over admission. Laboratory Test 11/29/16 15:30 11/29/16 15:50 12/02/16 06:28 Urine Color YELLOW Urine Appearance CLEAR Urine pH 6.5 Urine Specific Edmond 1.006 Urine Protein NEG Urine Glucose (UA) NEG Urine Ketones NEG Urine Occult Blood NEG Urine Nitrite NEG Urine Bilirubin NEG Urine Urobilinogen NEG Urine Leukocyte Esterase NEG Urine Opiates Screen NEG Urine Methadone, Qualitative NEG Urine Barbiturates NEG Urine Phencyclidine (PCP) Level NEG Ur Amphetamine/Methamphetamine NEG Urine MDE-amphetamine (MDEA) negative Ur Methylenedioxyamphetamine (MDA) negative MDMA (Ecstasy) Screen POS Methylenedioxymethamphetamine (MDMA negative Urine Benzodiazepines Screen NEG Urine Cocaine Metabolite NEG Urine Marijuana (THC) NEG White Blood Count 5.60 Red Blood Count 4.52 Hemoglobin 14.1 Hematocrit 39.8 Mean Corpuscular Volume 88.1 Mean Corpuscular Hemoglobin 31.2 Mean Corpuscular Hemoglobin Concent 35.4 Platelet Count 138 Mean Platelet Volume 11.0 Neutrophils (%) (Auto) 70.9 Lymphocytes (%) (Auto) 18.9 Monocytes (%) (Auto) 8.9 Eosinophils (%) (Auto) 0.7 Basophils (%) (Auto) 0.4 Neutrophils # (Auto) 3.97 Lymphocytes # (Auto) 1.06 Monocytes # (Auto) 0.50 Eosinophils # (Auto) 0.04 Basophils # (Auto) 0.02 RDW Standard Deviation 40.5 RDW Coefficient of Variation 12.6 Immature Granulocyte % (Auto) 0.2 Immature Granulocyte # (Auto) 0.01 Sodium Level 140 Potassium Level 3.7 Chloride Level 106 Carbon Dioxide Level 31 Anion Gap 3.0 Blood Urea Nitrogen 19 Creatinine 1.50 Est Creatinine Clear Calc Drug Dose 46.9 Estimated GFR () 56.6 Estimated GFR (Non- 48.8 BUN/Creatinine Ratio 12.8 Random Glucose 80 Calcium Level 8.8 Total Bilirubin 0.6 Aspartate Amino Transferase (AST) 43 Alanine Aminotransferase (ALT) 31 Alkaline Phosphatase 54 Total Protein 6.9 Albumin 3.7 Globulin 3.2 Albumin/Globulin Ratio 1.2 Thyroid Stimulating Hormone (TSH) 2.410 Salicylates Level < 1.7 Acetaminophen Level < 2 Ethyl Alcohol mg/dL < 3.0 Fasting Glucose 87 Triglycerides Level 93 Cholesterol Level 131 HDL Cholesterol 33 LDL Cholesterol, Calculated 79 VLDL Cholesterol, Calculated 19 Cholesterol/HDL Ratio 4.0 Total Time Total Time Spent (min): Greater than 30 minutes Total Time Included: examination of the patient, discharge planning, medication reconciliation, communication with other providers Tobacco Cessation at Discharge Smoking Status: Never Smoker FDA approved Prescription: nicotine replacement product
--- NOTE | 2016-12-04 13:32 | Medical Student: BHU Only ---
Psychiatric Progress Note Date of Service: Dec 04, 2016. History 61 year old male with history of schizoaffective disorder, bipolar type. He was admitted to the [facility] unit on 11/29/16. He was taking antidepressants (zoloft and wellbutrin) anhe had discontinued Invega 3 month injections this past March. He has an underlying intellectual disability, which affects his thought processes on the internet for which he has limited understanding. The computer is a major source of his paranoia. Chief Complaint "I am ready to go home, I am better." Mental Status Exam During interview patient is: alert and oriented, cooperative Appearance: appropriately dressed and groomed Eye contact is: good Motor behavior is: no abnormal motor movements Speech: normal in rate, rhythm and volume; much more talkative then on admission Affect: euthymic Mood is: "good" Thought process: goal directed, normal in quantity Thought content: no paranoia, reality based Suicidal thoughts are: absent Homicidal thoughts are: absent Hallucinations: no auditory or visual hallucinations Intelligence estimated to be: below average Insight: much better than from on admission, fair-good Judgement: much better than from on admission, good Plan Schizoaffective disorder, bipolar type -Risperdal in the acute inpatient setting -Zoloft 100mg for anxiety -hold Wellbutrin Planned discharge today -Family meeting this afternoon -Discussed triggers - facebook and email -Discussed safety plan for what to do if he becomes anxious or paranoid while using the computer - such as he is to walk away, watch TV, go take a walk , or go out and garden, or talk to someone, or call to seek medical attention. -Patient also mentioned concerns about his social security number because he gave it in what sounded like a fishing email some time ago - discuss with family -Patient also mentioned concerns about his bank debit card being inactive after recent episode where he might have canceled it - Patient also mentioned he would like to find a dentis and and eye doctor as he needs appointments
== END 2016-12-04 14:12 | disposition home or self-care (01) | DRG 885 ==
LOC: C.EDB 15:01 → C.MHU 17:48
PROVIDERS: ADMIT Psychiatry & Neurology Child & Adolescent Psychiatry; ATTEND Psychiatry & Neurology Child & Adolescent Psychiatry
DX: F25.0 Schizoaffective disorder, bipolar type (principal); R45.851 Suicidal ideations; N18.3 Chronic kidney disease, stage 3 (moderate); Z79.899 Other long term (current) drug therapy

== ENCOUNTER 2018-12-27 08:59 | Inpatient (IN) ==
[2018-12-27] MEDS ORDERED: SODIUM CHLORIDE 0.9% 1000ML 1,000 ML IV ONE (10:51)
--- NOTE | 2018-12-27 11:17 | Pharmacy Report ---
ED Pharmacist Progress Note - ED Pharmacist Progress Note Date of Service:: December 27, 2018 Notes:: Contacted Poison Control on behalf of Dr Hoover as this patient was using more than the prescribed dose of Azathioprine. Patient was given rx for Azathioprine 50mg tabs and was to take 2 tablets (100mg) PO daily. This Rx was filled on 12/15 for 60 tablets, however today he has only 14 tablets remaining. Upon questioning the patient he states he thinks he was taking 2 tablets twice daily. This is consistent with the quantity remaining. Per Poison Control, there is little data regarding overdoses of this medication. They stated some of his symptoms would be consistent with Azathioprine use however toxicity unlikely at the dosage he was using. They recommended checking the patient's renal fxn and working the patient up for other causes of the patient's presenting symptoms.
--- NOTE | 2018-12-27 11:21 | XRay Report ---
XR chest 1V portable HISTORY: Sepsis COMPARISON: None. FINDINGS: The lungs are clear. The heart is normal in size. No pleural effusions. No pneumothorax. Ol d, healed left-sided rib fractures. IMPRESSION: No acute process. Electronically signed by: Shaggy Garcia M.D. 12/27/2018 11:20 AM
[2018-12-27 11:38] LABS: Basophils # (auto) 0.01 K/uL (0-0.2); Basophils % (auto) 0.1 %; Eosinophils # (auto) 0.09 K/uL (0-0.5); Eosinophils % (auto) 0.7 %; Hematocrit (blood only) 34.4 % (42-52); Hemoglobin 11.6 g/dL (14.0-18.0); Immature Granulocytes # (auto) 0.04 K/uL (0.00-0.02); Immature Granulocytes % (auto) 0.3 %; Lymphocytes # (auto) 0.33 K/uL (1.2-3.4); Lymphocytes % (auto) 2.7 %; Mean Corpuscular Hemoglobin 29.5 pg (25-34); Mean Corpuscular Hgb Conc 33.7 g/dL (32-36); Mean Corpuscular Volume 87.5 fL (80-100); Mean Platelet Volume 11.3 fL (7.4-10.4); Monocytes # (auto) 0.67 K/uL (0.11-0.59); Monocytes % (auto) 5.5 %; Neutrophils # (auto) 11.08 K/uL (1.4-6.5); Neutrophils % (auto) 90.7 %; Platelet Count 125 K/uL (130-400); RDW Coefficient of Variation 13.4 % (11.5-14.5); RDW Standard Deviation 43.1 fL (36.4-46.3); Red Blood Count 3.93 M/uL (4.7-6.1); White Blood Count 12.22 K/uL (4.8-10.8)
[2018-12-27 11:50] LABS: INR 1.1 (0.9-1.1); Partial Thromboplastin Ratio 1.2; Partial Thromboplastin Time 32.2 Seconds (21.0-31.0); Prothrombin Time 11.3 Seconds (9.0-12.0)
[2018-12-27 11:56] LABS: Alanine Aminotransferase 27 U/L (12-78); Aspartate Aminotransferase 27 U/L (15-37); BUN Creatinine Ratio 14.1 (10-20); Blood Urea Nitrogen 39 mg/dl (7-18); Calcium 8.6 mg/dl (8.5-10.1); Carbon Dioxide 26 mmol/L (21-32); Chloride 103 mmol/L (98-107); Creatinine Clr Calc Pharmacy 27.2 ml/min; Est GFR (African American) 26.2; Est GFR (Non-African American) 22.6; Glucose 118 mg/dl (70-99); Potassium 3.5 mmol/L (3.5-5.1); Sodium 137 mmol/L (136-145)
[2018-12-27 12:01] LABS: Albumin Globulin Ratio 0.6 (0.9-2); Alkaline Phosphatase 50 U/L (45-117); Bilirubin,Total 0.6 mg/dl (0.2-1); Globulin 4.9 gm/dl (2.5-4.0); Total Protein 7.9 gm/dl (6.4-8.2); Troponin I < 0.015 ng/ml (0-0.045)
[2018-12-27 12:13] LABS: Appearance Urine Turbid (Clear); Bacteria Urine Automated Negative (Negative); Blood Urine 1+ (Negative); Color Urine Dark Yellow; Epithelial Cell Urine Auto >30 /lpf (0-5); Glucose Urine UA Negative (Negative); Ketones Urine Trace (Negative); Leukocyte Esterase Urine 1+ (Negative); Nitrite Urine Positive (Negative); Protein Urine 2+ (Negative); RBC Urine Automated 0-4 /hpf (0-4); Specific Gravity Urine 1.026 (1.000-1.030); Urobilinogen Urine Negative (Negative); WBC Urine Automated >30 /hpf (0-5)
[2018-12-27 12:21] LABS: Bilirubin Urine Negative (Negative); Ictotest Urine Negative (Negative)
--- NOTE | 2018-12-27 12:26 | CT Scan Report ---
HEAD CT NONCONTRAST CT DOSE: 521.14 mGycm HISTORY: Fall. TECHNIQUE: Multiaxial CT images of the head were performed without the use of intravenous contrast. A utomated exposure control was utilized for this study. A dose lowering technique was utilized adheri ng to the principles of ALARA. Comparison: None. Findings: The paranasal sinuses and mastoid air cells are clear. The calvarium and skull base are int act. The ventricles and sulci are within normal limits. There is no mass, hematoma, midline shift, or acute infarct. Impression: No acute intracranial abnormality. Electronically signed by: Shaggy Garcia M.D. 12/27/2018 12:25 PM
--- NOTE | 2018-12-27 12:40 | CT Scan Report ---
CERVICAL SPINE CT CT DOSE: 431.68 mGycm HISTORY: Fall. Neck pain. fall eval for fx TECHNIQUE: Multiaxial CT images of the cervical spine were performed and reformatted in the sagittal and coronal plane without the use of contrast. A dose lowering technique was utilized adhering to th e principles of ALARA. COMPARISON: None. FINDINGS: No fractures. No subluxation. Prevertebral soft tissues and the C1-C2 interval are intact. No pneumothorax. Moderate disc space narrowing within the lower cervical spine. IMPRESSION: No fractures within the cervical spine. Electronically signed by: Shaggy Garcia M.D. 12/27/2018 12:39 PM
[2018-12-27] MEDS ORDERED: PIPERACILLIN/TAZOBACTAM 4.5 GM/120 ML BAG IV ONE (12:43)
[2018-12-27] MEDS ORDERED: PIPERACILL/TAZOBAC CONSULT ACTIVE PRN ×2 (12:43→15:52)
[2018-12-27] MEDS ORDERED: SODIUM CHLORIDE 0.9% 1000ML 1,000 ML IV SCH ×2 (12:45→15:45)
--- NOTE | 2018-12-27 14:47 | History & Physical Report ---
Date of Service December 27, 2018 Assessment & Plan (1) Sepsis: 63-year-old male with history of CKD 3, eczema, frequent C. difficile infections, schizoaffective disorder, bipolar type, intellectual disability presents status post fall due to dizziness in the setting of having fever and not feeling well x4 days. Concern for sepsis likely secondary to UTI vs. possible C. diff. Initially tachycardic and hypotensive which has now improved. Elevated WBC with positive UA. Lactate normal. Sepsis likely secondary to UTI vs. possible C. diff infection (given hx and diarrhea) in the setting of immunosuppression due to Azathioprine and recent prednisone -Pt was taking double prescribed dose of azathioprine (not toxic dose, still w/in therapeutic dose) 100mg BID vs. daily -Afebrile on admission, hypotensive and tachycardic - improved s/p IVFs 2L NS in the ED -WBC 12.2 with L shift, lactate normal -UA positive but also dirty, UCx pending -CXR negative, influenza negative -BCx2 pending -C. diff pending -On Zosyn empirically -Continue IVFs NS 125cc/hr Fall secondary to dizziness -CT head and neck negative JINNY on CKD3: -sec to sepsis and diarrhea -Azathioprine is hepatically cleared and should not have exacerbated renal disease -BUN/Cr 29/2.8 (baseline Cr 1.5) -Received 2L NS -On IVFs 125cc/hr -Monitor BMP Anemia: chronic disease given CKD -Hgb 11.6 (baseline 14), MCV 87 -No concern for GI bleed per history -Hemeoccult ordered -Continue to monitor Diarrhea/dehydration -c diff pending -IV hydration Thrombocytopenia -Plt 125, previously 134 -No concern for bleeding at this time -Continue to monito Schizoaffective disorder, bipolar type -Continue home risperidone and sertraline GERD -Continue ranitidine BPH -Continus tamsulosin Eczema -Hold azathioprine -Prescribed hydrocortisone 2.5% BID PRN for skin irritation DVT prop: SCDs, no chemical gievn thrombocytopenia/anemia Code: Full Dispo: med/surg telemetry Diet: Regular (2) JINNY (acute kidney injury): (3) Acute UTI: (4) Anemia: (5) Fall: (6) Eczematous dermatitis: (7) Stage 3 chronic kidney disease: (8) Schizoaffective disorder, bipolar type: (9) GERD (gastroesophageal reflux disease): (10) Intellectual disability: History of Present Illness Chief Complaint: 63-year-old male with history of CKD 3, eczema, frequent C. difficile infections, schizoaffective disorder, bipolar type, intellectual disability presents status post fall due to dizziness in the setting of having fever and not feeling well x4 days. Per patient and [id number], last Saturday, 4 days ago started having chills, headache, sore throat and thought he was getting a cold. Then on , 3 days ago developed cough, lightheadedness, diarrhea. Had an episode of diarrhea about every 4 hours which was nonbloody, brown in color. Diarrhea has slowed down now. Yesterday he had a fever of 102. He also fell last night due to lightheadedness and hit his head but did not pass out. Of note: Patient was started on azathioprine for eczema on December 15, azathioprine 50 mg 2 tabs daily. He had previously just finished a 16-day course of prednisone. However according to [id number] he was taking it twice daily, more than he was supposed to. This is attributed to his intellectual disability. Patient denies any suicidal or homicidal ideation. Today he reports chills but denies any fever, shortness of breath, chest pain, abdominal pain, nausea, vomiting, dysuria, increased urinary frequency, or urgency. He has not had a bowel movement since being in the emergency room. Primary Care Provider: César Reis Allergies Allergy/AdvReac Type Severity Reaction Status Date / Time No Known Allergies Allergy Verified 12/27/18 11:21 Home Medications Home Medications Medication Instructions Recorded Confirmed Type calcitriol 0.25 mcg capsule 0.25 mcg PO Q2D 10/29/18 12/27/18 History ranitidine 150 mg capsule 150 mg PO HS 10/29/18 12/27/18 History risperidone 1 mg tablet 1 mg PO HS 10/29/18 12/27/18 History sertraline 100 mg tablet 100 mg PO QAM 10/29/18 12/27/18 History tamsulosin 0.4 mg capsule 0.4 mg PO BID 10/29/18 12/27/18 History azathioprine 100 mg PO DAILY 12/27/18 12/27/18 History diphenhydramine HCl [Benadryl] 25 mg PO HS PRN 12/27/18 12/27/18 History [id number] K-lycop 1 tab PO DAILY 12/27/18 12/27/18 History [One-A-Day Men's Multivitamin] Past Med/Surg History Medical History Eczematous dermatitis (Acute) Surgical History S/P appendectomy Family History Other Family history non-contributory Social History Preferred Language: Sami Communication Ability: Effective Beliefs That Will Affect Care: None Current Living Situation: Spouse Other Information That Helps Us Care for You: No Feels Safe at Home: Yes Safety Concerns: Feels Safe At This Time Smoking Status: Never smoker Tobacco Type: smokeless tobacco ; Hx Alcohol Use: Yes Alcohol type: beer Hx Substance Use: No Review of Systems Review of Systems: As per HPI Physical Exam Physical Exam: General: In NAD, pleasant, frequently moving in bed due to itching sensation Psych: Mood and affect congruent -not sad appearing, linear thought process Neuro: A&O x 4 HEENT: bilateral mild conjunctival injection with purulent eye discharge and crusting, dry oral mucosa, mild posterior pharyngeal erythema, TMs dull (non- erythematous) Pulm: CTAB equal breath sounds bilaterally CV: RRR, no m/r/g, cap refill 3 secs Abdomen:+BS, no TTP in all quadrants, non-distended LE: no LE edema, no calf TTP Results & Data Vital Signs (Past 12 Hours) Vital Signs Temp Pulse Resp BP BP Pulse Ox 12/27/18 13:30 77 22 112/64 96 12/27/18 13:00 84 16 121/61 12/27/18 12:30 84 18 116/62 12/27/18 12:03 85 13 99 12/27/18 11:56 108/93 12/27/18 11:55 90 19 94/62 L 94 12/27/18 11:54 86 17 114/65 96 09/28/19 11:53 84 20 96 12/27/18 11:31 82 19 107/65 96 12/27/18 11:30 84 19 12/27/18 11:18 87 18 95 12/27/18 11:13 86 20 110/56 L 95 12/27/18 10:28 37.5 C 20 90/52 L 97 12/27/18 09:02 36.9 C 99 H 20 88/56 L 100 Laboratory Results Abnormal lab results 12/27/18 12/27/18 12/27/18 Range/Units 11:30 11:30 11:30 WBC 12.22 H (4.8-10.8) K/uL RBC 3.93 L (4.7-6.1) M/uL Hgb 11.6 L (14.0-18.0) g/dL Hct 34.4 L (42-52) % Plt Count 125 L (130-400) K/uL MPV 11.3 H (7.4-10.4) fL Immature Gran # (Auto) 0.04 H (0.00-0.02) K/uL Neut # (Auto) 11.08 H (1.4-6.5) K/uL Lymph # (Auto) 0.33 L (1.2-3.4) K/uL Newton # (Auto) 0.67 H (0.11-0.59) K/uL APTT 32.2 H (21.0-31.0) Seconds BUN 39 H (7-18) mg/dl Creatinine 2.80 H (0.6-1.4) mg/dl Glucose 118 H (70-99) mg/dl Albumin 3.0 L (3.4-5.0) gm/dl Globulin 4.9 H (2.5-4.0) gm/dl Albumin/Globulin Ratio 0.6 L (0.9-2) Urine Appearance (Clear) Urine Protein (Negative) Urine Ketones (Negative) Urine Blood (Negative) Urine Nitrite (Negative) Ur Leukocyte Esterase (Negative) Urine WBC (Auto) (0-5) /hpf U Hyaline Cast (Auto) (0-5) /lpf U Epithel Cells (Auto) (0-5) /lpf Granular Casts (0) /lpf 12/27/18 Range/Units 12:03 WBC (4.8-10.8) K/uL RBC (4.7-6.1) M/uL Hgb (14.0-18.0) g/dL Hct (42-52) % Plt Count (130-400) K/uL MPV (7.4-10.4) fL Immature Gran # (Auto) (0.00-0.02) K/uL Neut # (Auto) (1.4-6.5) K/uL Lymph # (Auto) (1.2-3.4) K/uL Newton # (Auto) (0.11-0.59) K/uL APTT (21.0-31.0) Seconds BUN (7-18) mg/dl Creatinine (0.6-1.4) mg/dl Glucose (70-99) mg/dl Albumin (3.4-5.0) gm/dl Globulin (2.5-4.0) gm/dl Albumin/Globulin Ratio (0.9-2) Urine Appearance Turbid A (Clear) Urine Protein 2+ H (Negative) Urine Ketones Trace H (Negative) Urine Blood 1+ H (Negative) Urine Nitrite Positive A (Negative) Ur Leukocyte Esterase 1+ H (Negative) Urine WBC (Auto) >30 H (0-5) /hpf U Hyaline Cast (Auto) 10-30 H (0-5) /lpf U Epithel Cells (Auto) >30 H (0-5) /lpf Granular Casts 10-20 H (0) /lpf Diagnostic Findings HEAD CT NONCONTRAST CT DOSE: 521.14 mGycm HISTORY: Fall. TECHNIQUE: Multiaxial CT images of the head were performed without the use of intravenous contrast. Automated exposure control was utilized for this study. A dose lowering technique was utilized adhering to the principles of ALARA. Comparison: None. Findings: The paranasal sinuses and mastoid air cells are clear. The calvarium and skull base are intact. The ventricles and sulci are within normal limits. There is no mass, hematoma, midline shift, or acute infarct. Impression: No acute intracranial abnormality. XR chest 1V portable HISTORY: Sepsis COMPARISON: None. FINDINGS: The lungs are clear. The heart is normal in size. No pleural effusions. No pneumothorax. Old, healed left-sided rib fractures. IMPRESSION: No acute process. CERVICAL SPINE CT CT DOSE: 431.68 mGycm HISTORY: Fall. Neck pain. fall eval for fx TECHNIQUE: Multiaxial CT images of the cervical spine were performed and refo rmatted in the sagittal and coronal plane without the use of contrast. A dose lowering technique was utilized adhering to the principles of ALARA. COMPARISON: None. FINDINGS: No fractures. No subluxation. Prevertebral soft tissues and the C1-C2 interval are intact. No pneumothorax. Moderate disc space narrowing within the lower cervical spine. IMPRESSION: No fractures within the cervical spine. Medications Administered Current Inpatient Medications Miscellaneous Information (Consult) 1 ea N/A UD PRN PRN Reason: Consult Stop: 01/26/19 12:42 Code Status & VTE Plan Code Status Full per discussion with patient and [id number] VTE Prophylaxis Plan VTE Prophylaxis will be ordered: Yes Supervising Physician Co-Signing Physician Notes Resident Physician Supervision Note: I independently interviewed and examined the patient and verified the feng history and physical, reviewed labs and image studies, discussed the case with the resident Dr. Weston and agree with the findings and care plan. PG Care Time/CCT Total # of Minutes Spent Total Time Spent with Patient: Total time spent is greater than 50% in coordination of care (as documented) at patient's floor/unit and/or counseling patient: Resident Activity Tracking Resident Involvement: Resident Care Provided Care Provided: Adult Hospital Medicine (1) Anemia Anemia type: unspecified type Qualified Code(s): D64.9 - Anemia, unspecified (2) Sepsis Acute renal failure type: unspecified Sepsis acute organ dysfunction status: with acute organ dysfunction Sepsis type: sepsis due to unspecified organism Severe sepsis acute organ dysfunction type: acute renal failure Severe sepsis shock status: with septic shock Qualified Code(s): A41.9 - Sepsis, unspecified organism; R65.21 - Severe sepsis with septic shock; N17.9 - Acute kidney failure, unspecified (3) Fall Encounter type: initial encounter Qualified Code(s): W19.XXXA - Unspecified fall, initial encounter
[2018-12-27] MEDS ORDERED: FAMOTIDINE 20MG IV PUSH 20 MG/5 ML SYR IV STA (15:41)
[2018-12-27] MEDS ORDERED: methylPREDNISolone 125 MG/2 ML VIAL IV STA (15:41)
[2018-12-27] MEDS ORDERED: ONDANSETRON INJ 2 MG/ML 2 ML VIAL IV PRN (15:52)
--- NOTE | 2018-12-27 16:22 | Emergency Department Note ---
Entered by Tommy Guerin acting as a scribe for History of Present Illness General Chief complaint: Fever Stated complaint: fever, diarrhea Source: patient and family History of Present Illness Onset (ago): day(s) 2 Location: head Severity: moderate (102 degrees F) Pain Consistency: + intermittent Maximum Pain Intensity: 9 Quality: + other (fever) Associated symptoms: + denies other symptoms (abdominal pain), + cough (dry), + headaches (intermittent) and + other (diarrhea, right sided ear pain, neck pain, intermittent runny nose); no chest pain and no shortness of breath The patient is a 63 y/o male who presents to the ED w/ CC of an intermittent fever beginning 2 days ago. The patient states he has had a fever for the past two days that reached 102 degrees F yesterday. He reports he was evaluated by dermatology and started on azathioprine 11 days ago and has been accidentally doubling his dose. His [id number] says that he has an intellectual disability. It was not an intentional overdose. The patient notes he has also been experiencing diarrhea and right sided ear pain. He states he woke up this morning with a sore throat that is easing up throughout the day. The patient reports an intermittent runny nose and headache. He notes he has had a dry cough and neck pain for the past few weeks also. The patient states he fell during the night, hit his head on the wall, and then fell to the ground. He reports he was lightheaded and woozy before falling and did not lose consciousness. The patient notes his neck pain was not associated with the fall. He denies abdominal pain, chest pain, and shortness of breath. The patient's [id number] at bedside states he has is intellectually disabled, and she confirmed the history as he presented it. Home Medications Home Medications Medication Instructions Recorded Confirmed Type calcitriol 0.25 mcg capsule 0.25 mcg PO Q2D 10/29/18 12/27/18 History ranitidine 150 mg capsule 150 mg PO HS 10/29/18 12/27/18 History risperidone 1 mg tablet 1 mg PO HS 10/29/18 12/27/18 History sertraline 100 mg tablet 100 mg PO QAM 10/29/18 12/27/18 History tamsulosin 0.4 mg capsule 0.4 mg PO BID 10/29/18 12/27/18 History azathioprine 100 mg PO DAILY 12/27/18 12/27/18 History diphenhydramine HCl [Benadryl] 25 mg PO HS PRN 12/27/18 12/27/18 History heutdxwo-ifl-[id number]-vit K-lycop 1 tab PO DAILY 12/27/18 12/27/18 History [One-A-Day Men's Multivitamin] Allergies Allergy/AdvReac Type Severity Reaction Status Date / Time No Known Allergies Allergy Verified 12/27/18 11:21 Past Med/Surg History Medical History Eczematous dermatitis (Acute) Surgical History S/P appendectomy Family History Other Family history non-contributory Social History Feels Safe at Home: Yes Smoking Status: Never smoker Tobacco Type: smokeless tobacco ; Review of Systems See HPI for pertinent positives & negatives. and A total of 10 systems reviewed and were otherwise negative Physical Exam Vital Signs Vital Signs - 24 hr 12/27/18 09:02 12/27/18 10:28 12/27/18 11:13 Temperature 36.9 C 37.5 C Temperature Source Oral Oral Sepsis Recent Fever Within 48 Hours No Sepsis Action Taken by Nursing No Action Required Pulse Rate - Lying Pulse Rate - Sitting Pulse Rate - Standing Pulse Rate 99 H 86 Pulse Rate from SpO2 Sensor 86 Pulse Rhythm Respiratory Rate 20 20 20 Respiratory Effort / Characteristics Non-Labored Non-Labored Respiratory Depth Normal Normal Blood Pressure - Lying Blood Pressure - Sitting Blood Pressure- Standing Blood Pressure 88/56 L 110/56 L Blood Pressure [Right Arm] 90/52 L Blood Pressure Mean 66 74 Blood Pressure Mean [Right Arm] 64 Pulse Oximetry 100 97 95 Oxygen Delivery Method Room Air Room Air 12/27/18 11:18 12/27/18 11:30 12/27/18 11:31 Temperature Temperature Source Sepsis Recent Fever Within 48 Hours Sepsis Action Taken by Nursing Pulse Rate - Lying Pulse Rate - Sitting Pulse Rate - Standing Pulse Rate 87 84 82 Pulse Rate from SpO2 Sensor 86 82 Pulse Rhythm Respiratory Rate 18 19 19 Respiratory Effort / Characteristics Respiratory Depth Blood Pressure - Lying Blood Pressure - Sitting Blood Pressure- Standing Blood Pressure 107/65 Blood Pressure [Right Arm] Blood Pressure Mean 79 Blood Pressure Mean [Right Arm] Pulse Oximetry 95 96 Oxygen Delivery Method 12/27/18 11:53 12/27/18 11:54 12/27/18 11:55 Temperature Temperature Source Sepsis Recent Fever Within 48 Hours Sepsis Action Taken by Nursing Pulse Rate - Lying 82 Pulse Rate - Sitting 85 Pulse Rate - Standing 90 Pulse Rate 84 86 90 Pulse Rate from SpO2 Sensor 86 90 Pulse Rhythm Regular Respiratory Rate 20 17 19 Respiratory Effort / Characteristics Respiratory Depth Blood Pressure - Lying 114/65 Blood Pressure - Sitting 94/62 L Blood Pressure- Standing 108/93 Blood Pressure 114/65 94/62 L Blood Pressure [Right Arm] Blood Pressure Mean 81 72 Blood Pressure Mean [Right Arm] Pulse Oximetry 96 96 94 Oxygen Delivery Method Room Air 12/27/18 11:56 12/27/18 12:03 12/27/18 12:30 Temperature Temperature Source Sepsis Recent Fever Within 48 Hours Sepsis Action Taken by Nursing Pulse Rate - Lying Pulse Rate - Sitting Pulse Rate - Standing Pulse Rate 85 84 Pulse Rate from SpO2 Sensor 85 Pulse Rhythm Respiratory Rate 13 18 Respiratory Effort / Characteristics Respiratory Depth Blood Pressure - Lying Blood Pressure - Sitting Blood Pressure- Standing Blood Pressure 108/93 116/62 Blood Pressure [Right Arm] Blood Pressure Mean 98 80 Blood Pressure Mean [Right Arm] Pulse Oximetry 99 Oxygen Delivery Method 12/27/18 13:00 12/27/18 13:30 12/27/18 14:00 Temperature Temperature Source Sepsis Recent Fever Within 48 Hours Sepsis Action Taken by Nursing Pulse Rate - Lying Pulse Rate - Sitting Pulse Rate - Standing Pulse Rate 84 77 76 Pulse Rate from SpO2 Sensor 78 76 Pulse Rhythm Respiratory Rate 16 22 19 Respiratory Effort / Characteristics Respiratory Depth Blood Pressure - Lying Blood Pressure - Sitting Blood Pressure- Standing Blood Pressure 121/61 112/64 109/93 Blood Pressure [Right Arm] Blood Pressure Mean 81 80 98 Blood Pressure Mean [Right Arm] Pulse Oximetry 96 97 Oxygen Delivery Method 12/27/18 14:30 Temperature Temperature Source Sepsis Recent Fever Within 48 Hours Sepsis Action Taken by Nursing Pulse Rate - Lying Pulse Rate - Sitting Pulse Rate - Standing Pulse Rate 86 Pulse Rate from SpO2 Sensor Pulse Rhythm Respiratory Rate 20 Respiratory Effort / Characteristics Respiratory Depth Blood Pressure - Lying Blood Pressure - Sitting Blood Pressure- Standing Blood Pressure 172/96 H Blood Pressure [Right Arm] Blood Pressure Mean 121 Blood Pressure Mean [Right Arm] Pulse Oximetry Oxygen Delivery Method Constitutional: Vital signs reviewed. Hypertensive. Eyes: Pupils are equal round reactive to light. Conjunctiva are noninjected. ENT: Pharynx is clear without erythema or exudate. Mucous membranes are moist. Neck supple without meningeal signs. Respiratory: Clear to auscultation bilaterally. Breath sounds are equal b ilaterally. Cardiovascular: Regular rate and rhythm. No rubs or gallops. GI: Soft, nondistended and nontender. Bowel sounds are present. Musculoskeletal: No peripheral edema. No lower extremity tenderness. Integumentary: No cyanosis. Neurological: The patient is awake and alert. No focal deficits. Psychiatric: Normal affect. Course 1044: Past medical records reviewed. The patient was evaluated in room C02B. A complete history and physical exam was performed. 1155: The patient's blood pressure is significantly improved upon reevaluation. 1247: The patient's current blood pressure is 112/62. I discussed the results with the patient and his [id number] at the bedside. They are agreeable with the treatment plan and hospitalist evaluation. 1249: I reviewed the patient's case with Dr. Fernandez, [facility] Hospitalist. The patient will be evaluated for further management and care. 1421: The patient's blood pressure is stable. Administered Medications Discontinued Medications Diphenhydramine HCl (Benadryl Capsule) 25 mg PO NOW STA Stop: 12/27/18 15:42 Last Admin: 12/27/18 15:46 Dose: Not Given Documented by: [id number] Sodium Chloride (Nss 1000ml) 1,000 mls @ 999 mls/hr IV .Q1H1M ONE Stop: 12/27/18 11:51 Last Infusion: 12/27/18 13:13 Dose: 0 mls/hr Documented by: [id number] Admin: 12/27/18 12:03 Dose: 999 mls/hr Documented by: [id number] Sodium Chloride (Nss 1000ml) 1,000 mls @ 999 mls/hr IV .Q1H1M WILLI Stop: 12/27/18 13:45 Last Infusion: 12/27/18 14:23 Dose: 0 mls/hr Documented by: [id number] Admin: 12/27/18 13:20 Dose: 999 mls/hr Documented by: [id number] Piperacillin Sod/Tazobactam Sod (Zosyn) 4.5 gm in 120 mls @ 240 mls/hr IV NOW ONE Stop: 12/27/18 13:12 Last Infusion: 12/27/18 13:57 Dose: 0 mls/hr Documented by: [id number] Admin: 12/27/18 13:19 Dose: 240 mls/hr Documented by: [id number] Famotidine (Pepcid 20mg Iv Push) 20 mg in 5 mls @ 2.5 mls/min IV NOW STA Stop: 12/27/18 15:42 Last Admin: 12/27/18 15:46 Dose: Not Given Documented by: [id number] Methylprednisolone (Solumedrol) 125 mg IV NOW STA Stop: 12/27/18 15:42 Last Admin: 12/27/18 15:45 Dose: Not Given Documented by: [id number] Medical Decision Making Differential Diagnosis Differential diagnosis includes: sepsis, UTI, pneumonia, influenza, viral illness. Medical Records Attestation: I reviewed the patient's medical records. I did perform a limited focused review of portions of the patient's old chart on the electronic medical record. The patient was evaluated by dermatology on the for eczematous dermatitis. Home Medications Current Medication List: was personally reviewed by me Laboratory Data Attestation: I reviewed the patient's lab results. Result diagrams: 12/27/18 11:30 12/27/18 11:30 Lab Results 12/27/18 12/27/18 12/27/18 Range/Units 11:10 11:30 11:30 WBC (4.8-10.8) K/uL RBC (4.7-6.1) M/uL Hgb (14.0-18.0) g/dL Hct (42-52) % MCV (80-100) fL MCH (25-34) pg MCHC (32-36) g/dL RDW Std Deviation (36.4-46.3) fL RDW Coeff of Leonor (11.5-14.5) % Plt Count (130-400) K/uL MPV (7.4-10.4) fL Immature Gran % (Auto) % Neut % (Auto) % Lymph % (Auto) % Stokes % (Auto) % Eos % (Auto) % Baso % (Auto) % Immature Gran # (Auto) (0.00-0.02) K/uL Neut # (Auto) (1.4-6.5) K/uL Lymph # (Auto) (1.2-3.4) K/uL Stokes # (Auto) (0.11-0.59) K/uL Eos # (Auto) (0-0.5) K/uL Baso # (Auto) (0-0.2) K/uL PT (9.0-12.0) Seconds INR (0.9-1.1) APTT (21.0-31.0) Seconds PTT Ratio Sodium 137 (136-145) mmol/L Potassium 3.5 (3.5-5.1) mmol/L Chloride 103 (98-107) mmol/L Carbon Dioxide 26 (21-32) mmol/L Anion Gap 8.0 (3-11) BUN 39 H (7-18) mg/dl Creatinine 2.80 H (0.6-1.4) mg/dl Est Cr Clr Drug Dosing 27.2 ml/min Est GFR ( Amer) 26.2 Est GFR (Non-Af Amer) 22.6 BUN/Creatinine Ratio 14.1 (10-20) Glucose 118 H (70-99) mg/dl Lactate 1.3 (0.4-2.0) mmol/L Calcium 8.6 (8.5-10.1) mg/dl Total Bilirubin 0.6 (0.2-1) mg/dl AST 27 (15-37) U/L ALT 27 (12-78) U/L Alkaline Phosphatase 50 (45-117) U/L Troponin I < 0.015 (0-0.045) ng/ml Total Protein 7.9 (6.4-8.2) gm/dl Albumin 3.0 L (3.4-5.0) gm/dl Globulin 4.9 H (2.5-4.0) gm/dl Albumin/Globulin Ratio 0.6 L (0.9-2) Urine Color Urine Appearance (Clear) Urine pH (4.5-7.5) Ur Specific [place] (1.000-1.030) Urine Protein (Negative) Urine Glucose (UA) (Negative) Urine Ketones (Negative) Urine Blood (Negative) Urine Nitrite (Negative) Urine Bilirubin (Negative) Urine Urobilinogen (Negative) Ur Leukocyte Esterase (Negative) Urine WBC (Auto) (0-5) /hpf Urine RBC (Auto) (0-4) /hpf U Hyaline Cast (Auto) (0-5) /lpf U Epithel Cells (Auto) (0-5) /lpf Urine Bacteria (Auto) (Negative) Ur Renal Epithelial Cell Granular Casts (0) /lpf Urine Yeast Influenza Type A Ag Neg for Influ A (Neg) Influenza Type B Ag Neg for Influ B (Neg) 12/27/18 12/27/18 12/27/18 Range/Units 11:30 11:30 12:03 WBC 12.22 H (4.8-10.8) K/uL RBC 3.93 L (4.7-6.1) M/uL Hgb 11.6 L (14.0-18.0) g/dL Hct 34.4 L (42-52) % MCV 87.5 (80-100) fL MCH 29.5 (25-34) pg MCHC 33.7 (32-36) g/dL RDW Std Deviation 43.1 (36.4-46.3) fL RDW Coeff of Leonor 13.4 (11.5-14.5) % Plt Count 125 L (130-400) K/uL MPV 11.3 H (7.4-10.4) fL Immature Gran % (Auto) 0.3 % Neut % (Auto) 90.7 % Lymph % (Auto) 2.7 % Stokes % (Auto) 5.5 % Eos % (Auto) 0.7 % Baso % (Auto) 0.1 % Immature Gran # (Auto) 0.04 H (0.00-0.02) K/uL Neut # (Auto) 11.08 H (1.4-6.5) K/uL Lymph # (Auto) 0.33 L (1.2-3.4) K/uL Stokes # (Auto) 0.67 H (0.11-0.59) K/uL Eos # (Auto) 0.09 (0-0.5) K/uL Baso # (Auto) 0.01 (0-0.2) K/uL PT 11.3 (9.0-12.0) Seconds INR 1.1 (0.9-1.1) APTT 32.2 H (21.0-31.0) Seconds PTT Ratio 1.2 Sodium (136-145) mmol/L Potassium (3.5-5.1) mmol/L Chloride (98-107) mmol/L Carbon Dioxide (21-32) mmol/L Anion Gap (3-11) BUN (7-18) mg/dl Creatinine (0.6-1.4) mg/dl Est Cr Clr Drug Dosing ml/min Est GFR ( Amer) Est GFR (Non-Af Amer) BUN/Creatinine Ratio (10-20) Glucose (70-99) mg/dl Lactate (0.4-2.0) mmol/L Calcium (8.5-10.1) mg/dl Total Bilirubin (0.2-1) mg/dl AST (15-37) U/L ALT (12-78) U/L Alkaline Phosphatase (45-117) U/L Troponin I (0-0.045) ng/ml Total Protein (6.4-8.2) gm/dl Albumin (3.4-5.0) gm/dl Globulin (2.5-4.0) gm/dl Albumin/Globulin Ratio (0.9-2) Urine Color Dark Yellow Urine Appearance Turbid A (Clear) Urine pH 5.0 (4.5-7.5) Ur Specific [place] 1.026 (1.000-1.030) Urine Protein 2+ H (Negative) Urine Glucose (UA) Negative (Negative) Urine Ketones Trace H (Negative) Urine Blood 1+ H (Negative) Urine Nitrite Positive A (Negative) Urine Bilirubin Negative (Negative) Urine Urobilinogen Negative (Negative) Ur Leukocyte Esterase 1+ H (Negative) Urine WBC (Auto) >30 H (0-5) /hpf Urine RBC (Auto) 0-4 (0-4) /hpf U Hyaline Cast (Auto) 10-30 H (0-5) /lpf U Epithel Cells (Auto) >30 H (0-5) /lpf Urine Bacteria (Auto) Negative (Negative) Ur Renal Epithelial Cell Not Reportable Granular Casts 10-20 H (0) /lpf Urine Yeast Not Reportable Influenza Type A Ag (Neg) Influenza Type B Ag (Neg) Imaging Data Radiologist's Impression: Radiology results as stated below per my review and the radiologist's interpretation: CERVICAL SPINE CT CT DOSE: 431.68 mGycm HISTORY: Fall. Neck pain. fall eval for fx TECHNIQUE: Multiaxial CT images of the cervical spine were performed and reformatted in the sagittal and coronal plane without the use of contrast. A dose lowering technique was utilized adhering to the principles of ALARA. COMPARISON: None. FINDINGS: No fractures. No subluxation. Prevertebral soft tissues and the C1-C2 interval are intact. No pneumothorax. Moderate disc space narrowing within the lower cervical spine. IMPRESSION: No fractures within the cervical spine. Electronically signed by: Shaggy Garcia M.D. 12/27/2018 12:[address] NON[address]AST CT DOSE: 521.14 mGycm HISTORY: Fall. TECHNIQUE: Multiaxial CT images of the head were performed without the use of intravenous contrast. Automated exposure control was utilized for this study. A dose lowering technique was utilized adhering to the principles of ALARA. Comparison: None. Findings: The paranasal sinuses and mastoid air cells are clear. The calvarium and skull base are intact. The ventricles and sulci are within normal limits. There is no mass, hematoma, midline shift, or acute infarct. Impression: No acute intracranial abnormality. Electronically signed by: Shaggy Garcia M.D. 12/27/2018 12:25 PM XR chest 1V portable HISTORY: Sepsis COMPARISON: None. FINDINGS: The lungs are clear. The heart is normal in size. No pleural effusions. No pneumothorax. Old, healed left-sided rib fractures. IMPRESSION: No acute process. Electronically signed by: Shaggy Garcia M.D. 12/27/2018 11:20 AM ECG Data Attestation: I personally reviewed and interpreted this ECG as follows: Indication: other (dizziness) Rate (beats per minute): 84 Rhythm: normal sinus Findings: no PVC and no ST elevation Blood Pressure Blood Pressure Findings: Low blood pressure Blood Pressure Disposition: further management by hospitalist Head Trauma GCS Score: 15 MDM Narrative I did evaluate the patient as noted above. The patient is immunocompromised and has been taking double the dose of his medication by accident over the past 11 days. He presents with fever for the past 2 days. He has hypotensive on presentation. IV access was established. The patient was placed on a continuous distribution estimator. He was given a liter of normal saline IV. He did have improvement of his hypotension but then he dropped his pressure again and was given another liter of normal saline IV. His blood pressure then remained stable. I did order and personally review the patient's 12-lead EKG as described above. He has no evidence of acute ischemia. I did order and personally reviewed the images of the patient's chest x-ray as described above. Chest x-ray is unremarkable. I did order a urine analysis. He does have an obvious infection. I did order blood cultures. I did treat him with Zosyn IV. I did order and review the patient's blood work as noted in the electronic medical record. He has an elevated white blood cell count. He is anemic. He has acute kidney injury. Lactic acid is not elevated. I did order a CT of the head and cervical spine. I did review the images myself as well as the radiology report as described above. There is no fracture or intracranial hemorrhage. I did reassess the patient several times. His blood pressure remained stable. I did recommend hospitalization for further evaluation. I did discuss the case with the hospitalist and case liner. Impression & Plan Sepsis, Acute hypotension, JINNY (acute kidney injury), Acute UTI, Anemia, Immunosuppression, Head injury, Fall, Accidental overdose Critical Care Time Critical Care Time: Yes Total Critical Care Time: 35 I have personally spent approximately 35 minutes of critical care time in the direct management of this patient. This includes bedside care, interpretation of diagnostic studies, and testing, discussion with consultants, patient, and family members, and other required patient management activities. These minutes are in excess of all separately billable procedures. Discharge Plan Visit Data Chief Complaint: Fever Stated Complaint: fever, diarrhea ED Provider: Nghia Hoover Discharge Problem: Sepsis, Acute hypotension, JINNY (acute kidney injury), Acute UTI, Anemia, Immun osuppression, Head injury, Fall, Accidental overdose Patient Disposition: Being Evaluated by Hospitalist Discharge Instructions Interventions: ED Discharge Assessment Last Done: 12/27/18 15:23 Sepsis Evaluation Sepsis screening result: No Definite Risk Current stage of sepsis: sepsis Focused Exam Vital Signs Temp Pulse Resp BP BP Pulse Ox 12/27/18 14:30 86 20 172/96 H 12/27/18 14:00 76 19 109/93 97 12/27/18 13:30 77 22 112/64 96 12/27/18 13:00 84 16 121/61 12/27/18 12:30 84 18 116/62 12/27/18 12:03 85 13 99 12/27/18 11:56 108/93 12/27/18 11:55 90 19 94/62 L 94 12/27/18 11:54 86 17 114/65 96 12/27/18 11:53 84 20 96 12/27/18 11:31 82 19 107/65 96 12/27/18 11:30 84 19 12/27/18 11:18 87 18 95 12/27/18 11:13 86 20 110/56 L 95 12/27/18 10:28 37.5 C 20 90/52 L 97 12/27/18 09:02 36.9 C 99 H 20 88/56 L 100 Reviewed Respiratory exam: Present CTA bilaterally Cardiovascular exam: Present RRR Capillary refill: < 2 Seconds (Instant) Peripheral pulse strength: Normal Skin exam: normal turgor Discharge Problem: Sepsis Qualifiers: Sepsis type: sepsis due to unspecified organism Sepsis acute organ dysfunction status: with acute organ dysfunction Severe sepsis acute organ dysfunction type: acute renal failure Acute renal failure type: unspecified Severe sepsis shock status: unspecified Qualified Code(s): A41.9 - Sepsis, unspecified organism Anemia Qualifiers: Anemia type: unspecified type Qualified Code(s): D64.9 - Anemia, unspecified Head injury Qualifiers: Encounter type: initial encounter Qualified Code(s): S09.90XA - Unspecified injury of head, initial encounter Fall Qualifiers: Encounter type: initial encounter Qualified Code(s): W19.XXXA - Unspecified fall, initial encounter Accidental overdose Qualifiers: Encounter type: initial encounter Qualified Code(s): T50.901A - Poisoning by unspecified drugs, medicaments and biological substances, accidental (unintentional), initial encounter The scribe's documentation has been prepared under my direction and personally reviewed by me in its entirety. I confirm that the note above accurately reflects all work, treatment, procedures, and medical decision making performed by me.
[2018-12-27] MEDS: PIPERACILLIN/TAZOBACTAM 3.375 GM in DEXTROSE 5% 100 ML IV SCH (16:53)
[2018-12-27] MEDS: HYDROCORTISONE 2.5% CR 30 GM TUBE EXT PRN (16:54)
[2018-12-27] MEDS: SODIUM CHLORIDE 0.9% 1000ML 1,000 ML IV SCH (16:54)
[2018-12-27] MEDS: TRIMETHOPRIM/POLYMYXIN B OP SCH ×2 (16:54→21:40)
[2018-12-27] MEDS ORDERED: INFLUENZA VIRUS QUAD VACCINE 0.5 ML SYR IM ONE (20:30)
[2018-12-27] MEDS ORDERED: PNEUMOCOCCAL POLYSACCHARIDES 25 MCG/0.5 ML VIAL/SYR IM ONE (20:30)
[2018-12-27] MEDS ORDERED: INFLUENZA ADMINISTRATION CHARGE ONE (20:30)
[2018-12-27] MEDS ORDERED: PNEUMOCOCCAL ADMINISTRATION CHARGE ONE (20:30)
[2018-12-27] MEDS: risperiDONE 1 MG TABLET PO SCH (21:40)
[2018-12-27] MEDS: TAMSULOSIN HCL 0.4 MG CAP PO SCH (21:41)
[2018-12-27] MEDS: ACETAMINOPHEN 325 MG TAB PO PRN (23:00)
[2018-12-28] MEDS: SODIUM CHLORIDE 0.9% 1000ML 1,000 ML IV SCH ×3 (01:47→17:13)
[2018-12-28] MEDS: PIPERACILLIN/TAZOBACTAM 3.375 GM in DEXTROSE 5% 100 ML IV SCH ×3 (04:21→17:13)
[2018-12-28 06:53] LABS: Creatinine Clr Calc Pharmacy 37.1 ml/min; Est GFR (African American) 38.3; Potassium 3.2 mmol/L (3.5-5.1)
[2018-12-28 07:23] LABS: Basophils # (auto) 0.02 K/uL (0-0.2); Basophils % (auto) 0.3 %; Eosinophils # (auto) 0.39 K/uL (0-0.5); Eosinophils % (auto) 5.8 %; Hematocrit (blood only) 33.6 % (42-52); Immature Granulocytes # (auto) 0.02 K/uL (0.00-0.02); Immature Granulocytes % (auto) 0.3 %; Lymphocytes # (auto) 0.63 K/uL (1.2-3.4); Lymphocytes % (auto) 9.4 %; Mean Corpuscular Hemoglobin 28.9 pg (25-34); Mean Corpuscular Hgb Conc 32.7 g/dL (32-36); Mean Corpuscular Volume 88.2 fL (80-100); Mean Platelet Volume 12.4 fL (7.4-10.4); Monocytes # (auto) 0.51 K/uL (0.11-0.59); Monocytes % (auto) 7.6 %; Neutrophils # (auto) 5.12 K/uL (1.4-6.5); Neutrophils % (auto) 76.6 %; Platelet Count 116 K/uL (130-400); Platelet Estimate Decreased (Normal); RDW Coefficient of Variation 13.6 % (11.5-14.5); RDW Standard Deviation 43.2 fL (36.4-46.3); Red Blood Count 3.81 M/uL (4.7-6.1); White Blood Count 6.69 K/uL (4.8-10.8)
[2018-12-28] MEDS ORDERED: POTASSIUM CHLORIDE 20 MEQ TABCR PO STA (07:51)
[2018-12-28] MEDS: SERTRALINE HCL 100 MG TABLET PO SCH (08:25)
[2018-12-28] MEDS: CEROVITE ADV FORMULA TAB PO SCH (08:25)
[2018-12-28] MEDS: TAMSULOSIN HCL 0.4 MG CAP PO SCH ×2 (08:25→21:01)
[2018-12-28] MEDS: TRIMETHOPRIM/POLYMYXIN B OP SCH ×4 (08:26→22:09)
[2018-12-28] MEDS: ACETAMINOPHEN 325 MG TAB PO PRN ×2 (08:27→19:44)
[2018-12-28] MEDS ORDERED: CALCITRIOL 0.25 MCG CAPSULE PO SCH (09:00)
[2018-12-28] MEDS: HYDROCORTISONE 2.5% CR 30 GM TUBE EXT PRN ×2 (13:08→16:07)
--- NOTE | 2018-12-28 14:19 | Family Medicine Progress Note ---
Date of Service December 28, 2018 Assessment & Plan (1) Sepsis: 63-year-old male with history of CKD 3, eczema, frequent C. difficile infections, schizoaffective disorder, bipolar type, intellectual disability presents status post fall due to dizziness in the setting of having fever and not feeling well x4 days. Concern for sepsis likely secondary to UTI vs. diarrheal illness. JINNY on CKD3: improving -Azathioprine is hepatically cleared and should not have exacerbated renal disease -BUN/Cr 39/2.8 (baseline Cr 1.5) -> 33/2.0 -Received 2L NS -On IVFs 125cc/hr -Monitor BMP Fever - Sepsis ruled out. likely secondary to azathioprine side effect and diarrheal illness in the setting of immunosuppression due to Azathioprine and recent prednisone -Pt was taking double prescribed dose of azathioprine (not toxic dose, still w/in therapeutic dose) 100mg BID vs. daily -Afebrile on admission, hypotensive and tachycardic - improved s/p IVFs 2L NS in the ED -Initial WBC 12.2 with L shift - normalized, lactate normal -CXR negative, influenza negative -UA positive but also dirty; UCx: 3 moderate organisms likely normal mahnaz -Blood culture: 1 growing gram + cocci in clusters per lab coag neg and likely contaminant; 2nd culture NGTD -C. diff negative -No further fever -Received Zosyn empirically - dced Fall secondary to dizziness -CT head and neck negative Anemia: concern for GI bleed given hemeoccult positive, Hgb - remained stable -Hgb 11.6 (baseline 14), MCV 87 -> 11 today -Hemeoccult positive -If Hgb continues to drop will consider inpatient GI consult, otherwise outpatient GI follow up recommended -Continue to monitor Thrombocytopenia -Plt 125->116, previously 134 -No concern for bleeding at this time -Continue to monitor Schizoaffective disorder, bipolar type -Continue home risperidone and sertraline GERD -Continue ranitidine BPH -Continus tamsulosin Eczema -Hold azathioprine -Prescribed hydrocortisone 2.5% BID PRN for skin irritation DVT prop: SCDs, no chemical given thrombocytopenia/anemia Code: Full Dispo: med/surg telemetry, pending clinical improvement Diet: Regular (2) JINNY (acute kidney injury): (3) Acute UTI: (4) Anemia: (5) Fall: (6) Eczematous dermatitis: (7) Stage 3 chronic kidney disease: (8) Schizoaffective disorder, bipolar type: (9) GERD (gastroesophageal reflux disease): (10) Intellectual disability: Supervising Physician Co-Signing Physician Notes Resident Physician Supervision Note: I independently interviewed and examined the patient and verified the feng history and physical, reviewed labs and image studies, discussed the case with the resident Dr. Weston and agree with the findings and care plan. Subjective This AM pt reports some ear pain and headache which improved after taking tylenol. Also reports dysuria while urinating last night. No diarrhea this AM had BM which appeared brownish, he does not recall noticing blood. Pt also reports last colonoscopy about 5-6 years ago at [facility] and was told he is good for 10 years. Otherwise denies any f/c, cp, sob, dizziness, abdominal pain, nausea, vomiting. Review of Systems Review of Systems: As per HPI Physical Exam Physical Exam: General: In NAD, pleasant and more comfortable this AM Psych: Mood and affect congruent -not depressed, linear thought process Neuro: A&O x 4 HEENT: no conjunctival injection, eye crusting or discharge noted this AM (improved eye exam), moist oral mucosa Pulm: CTAB equal breath sounds bilaterally CV: RRR, no m/r/g, cap refill <2 secs Abdomen:+BS, no TTP in all quadrants, non-distended LE: no LE edema, no calf TTP Skin: erythematous excoriated papules and pinkish plaques with scale throughout body (hx of eczema per dermatology note) Results & Data Vital Signs (Past 12 Hours) Vital Signs Temp Pulse Pulse Resp BP BP Pulse Ox 12/28/18 11:36 36.5 C 59 L 17 94/52 L 96 12/28/18 08:00 55 L 12/28/18 07:32 36.5 C 64 17 98/58 L 96 12/28/18 04:00 36.8 C 59 L 18 95/60 L 96 Laboratory Results Abnormal lab results 12/28/18 12/28/18 12/28/18 Range/Units 05:42 05:42 09:00 RBC 3.81 L (4.7-6.1) M/uL Hgb 11.0 L (14.0-18.0) g/dL Hct 33.6 L (42-52) % Plt Count 116 L (130-400) K/uL MPV 12.4 H (7.4-10.4) fL Lymph # (Auto) 0.63 L (1.2-3.4) K/uL Platelet Estimate Decreased L (Normal) Potassium 3.2 L (3.5-5.1) mmol/L Chloride 113 H (98-107) mmol/L BUN 33 H (7-18) mg/dl Creatinine 2.05 H D (0.6-1.4) mg/dl Calcium 8.0 L (8.5-10.1) mg/dl Stool Occult Bld Scrn Positive A (Negative) PG Care Time/CCT Total # of Minutes Spent Total Time Spent with Patient: Total time spent is greater than 50% in coordinat ion of care (as documented) at patient's floor/unit and/or counseling patient: Resident Activity Tracking Resident Involvement: Resident Care Provided Care Provided: Adult Hospital Medicine (1) Anemia Anemia type: unspecified type Qualified Code(s): D64.9 - Anemia, unspecified (2) Sepsis Acute renal failure type: unspecified Sepsis acute organ dysfunction status: with acute organ dysfunction Sepsis type: sepsis due to unspecified organism Severe sepsis acute organ dysfunction type: acute renal failure Severe sepsis shock status: unspecified Qualified Code(s): A41.9 - Sepsis, unspecified organism; R65.20 - Severe sepsis without septic shock; N17.9 - Acute kidney failure, unspecified (3) Fall Encounter type: initial encounter Qualified Code(s): W19.XXXA - Unspecified fall, initial encounter
[2018-12-28] MEDS: risperiDONE 1 MG TABLET PO SCH (21:01)
[2018-12-29] MEDS: SODIUM CHLORIDE 0.9% 1000ML 1,000 ML IV SCH ×2 (01:06→08:18)
[2018-12-29] MEDS: PIPERACILLIN/TAZOBACTAM 3.375 GM in DEXTROSE 5% 100 ML IV SCH (01:08)
[2018-12-29] MEDS: HYDROCORTISONE 2.5% CR 30 GM TUBE EXT PRN ×2 (01:11→12:11)
[2018-12-29] MEDS: ACETAMINOPHEN 325 MG TAB PO PRN ×3 (01:20→12:53)
[2018-12-29 06:15] LABS: Basophils # (auto) 0.02 K/uL (0-0.2); Basophils % (auto) 0.2 %; Eosinophils # (auto) 0.59 K/uL (0-0.5); Eosinophils % (auto) 7.1 %; Hematocrit (blood only) 32.5 % (42-52); Hemoglobin 10.7 g/dL (14.0-18.0); Immature Granulocytes # (auto) 0.02 K/uL (0.00-0.02); Immature Granulocytes % (auto) 0.2 %; Lymphocytes % (auto) 9.7 %; Mean Corpuscular Hemoglobin 29.6 pg (25-34); Mean Corpuscular Hgb Conc 32.9 g/dL (32-36); Mean Corpuscular Volume 89.8 fL (80-100); Mean Platelet Volume 11.9 fL (7.4-10.4); Monocytes # (auto) 0.46 K/uL (0.11-0.59); Monocytes % (auto) 5.6 %; Neutrophils # (auto) 6.39 K/uL (1.4-6.5); Neutrophils % (auto) 77.2 %; Platelet Count 160 K/uL (130-400); RDW Coefficient of Variation 13.7 % (11.5-14.5); RDW Standard Deviation 45.4 fL (36.4-46.3); Red Blood Count 3.62 M/uL (4.7-6.1); White Blood Count 8.28 K/uL (4.8-10.8)
[2018-12-29 06:45] LABS: BUN Creatinine Ratio 11.8 (10-20); Calcium 8.2 mg/dl (8.5-10.1); Creatinine Clr Calc Pharmacy 43.2 ml/min; Est GFR (Non-African American) 39.7; Potassium 3.6 mmol/L (3.5-5.1)
[2018-12-29] MEDS: TRIMETHOPRIM/POLYMYXIN B OP SCH ×2 (08:15→12:49)
[2018-12-29] MEDS: SERTRALINE HCL 100 MG TABLET PO SCH (08:16)
[2018-12-29] MEDS: CEROVITE ADV FORMULA TAB PO SCH (08:16)
[2018-12-29] MEDS: TAMSULOSIN HCL 0.4 MG CAP PO SCH (08:16)
--- NOTE | 2018-12-29 14:17 | Discharge Summary ---
Date of Service December 29, 2018 Admission Exam Per Admitting Provider General: In NAD, pleasant, frequently moving in bed due to itching sensation Psych: Mood and affect congruent -not sad appearing, linear thought process Neuro: A&O x 4 HEENT: bilateral mild conjunctival injection with purulent eye discharge and crusting, dry oral mucosa, mild posterior pharyngeal erythema, TMs dull (non- erythematous) Pulm: CTAB equal breath sounds bilaterally CV: RRR, no m/r/g, cap refill 3 secs Abdomen:+BS, no TTP in all quadrants, non-distended LE: no LE edema, no calf TTP Principal Diagnosis Azothioprine Side Effects/Toxicity Discharge Exam General: Alert and oriented x3, no acute distress, cooperative Psych: Mood "good", affect congruent. Linear thought process. Not responding to internal stimuli. Neuro: A&O x 4 HEENT: Atraumatic, normocephalic. No conjunctival injection. Moist oral mucosa. Pulm: CTAB equal breath sounds bilaterally. No wheezes, rales, rhonchi. Symmetrical chest rise. No increased work of breathing. CV: RRR, no m/r/g, cap refill <2 secs Abdomen:+BS, nontender to palpation, nondistended, soft LE: no LE edema Skin: erythematous excoriated papules and pinkish plaques with scale throughout body and most prominent on the elbows and lateral thighs bilaterally. Discharge Data Allergies Allergy/AdvReac Type Severity Reaction Status Date / Time No Known Allergies Allergy Verified 12/27/18 11:21 Consultations 12/27/18 12:50 ED Decision to Admit Stat Ordered Studies 12/27/18 10:51 CT cervical spine wo con Stat CT head/brain wo con Stat Hospital Course (1) Accidental overdose: Jhonathan is a 63-year-old male with a past medical history of CKD 3, severe eczema, past C. difficile infections, schizoaffective disorder of bipolar type, and history of intellectual disability who presented status post fall due to dizziness with fever and feeling poorly for 4 days. He was admitted for concern of sepsis. Concern for sepsis 2/2 UTI Patient was admitted tachycardic, hypotensive, with elevated white blood cells and positive UA. His lactate was normal. He was afebrile, blood cultures x2 and C. difficile testing were ordered, he was given IV fluid rehydration, and started on empiric Zosyn. Urine culture showed 3 moderate organisms likely normal mahnaz. Blood cultures showed 1 bottle with gram-positive cocci in clusters coag negative staph likely contaminant, Zosyn was discontinued and repeat cultures were negative. He remained afebrile. It was noted he was taking double the prescribed dose of azathioprine since the beginning of November, it was felt his presentation was likely due to drug side effect. His leukocytosis resolved following admission. Azathioprine toxicity, eczema Jhonathan has been started on azathioprine approximately 1 month prior to admission. He had accidentally been taking twice a day dosing which although was within a normal dosing regimen, was twice what he was originally prescribed. He had experienced nausea, diarrhea, and sour stomach as noted above. Following discontinuation of azathioprine his symptoms resolved. It was recommended that he stop taking his medication, continue using the triamcinolone ointment for his eczema, and follow-up with dermatology. Fall / dizziness Jhonathan had a fall prior to admission to the hospital, felt to be due to his dizziness and hypotension. CT head and neck were negative. His mentation was normal, and he did not have any altered mental status on day of discharge. Chronic anemia Jhonathan has a history of anemia with concern for GI blood given a positive Hemoccult. His his hemoglobin initially dropped from 14-11.6 and then remained stable at approximately 11. Outpatient follow-up with gastroenterology was recommended, but was not pursued at time of admission. Schitzoaffective disorder, bipolar type Jhonathan is a history of schizoaffective disorder on risperidone and sertraline. He was continued on his prior to admission medications, and did not have any signs of acute mood decompensation or psychosis. Right earache Jhonathan felt some pressure in his right ear during admission. He had a cold 1 week prior. Funduscopic showed very slight serous fluid without effusion or exudate, no injection. He was recommended to use Flonase for mild eustachian tube dysfunction. (2) Stage 3 chronic kidney disease: (3) Eczematous dermatitis: (4) Schizoaffective disorder, bipolar type: (5) Head injury: (6) Anemia: (7) Acute UTI: (8) JINNY (acute kidney injury): (9) Sepsis: (10) GERD (gastroesophageal reflux disease): (11) Intellectual disability: Total Time Total Time Spent Total Time Spent (In Minutes): >30 Discharge Plan Discharge Items Patient Disposition: Home - Self-Care Reason For Visit: SEPSIS Discharge Diagnosis: Acute drug reaction, azathioprine Activity: Per Instructions section Non-emergency contact: Primary Care Provider Call non-emergency contact if: you have any medication questions, your symptoms worsen, your pain is not controlled, your pain is unusual for you, your pain is concerning for you and you have a fever Follow-up/Referrals: César Reis [Primary Care Provider] - (Please, follow up with Dr. Reis. *A nurse from this office will call you with the appointment information. If you need to change this appointment, call the office at [phone].) Rory Horton MD [Physician] - Diet: Regular Addtl Attending Provider Instructions: You were seen in the hospital for concern of sepsis. You had one culture which showed a bacteria called staphylococcus in your blood which may have made you ill, but also could have been from contamination. You were thought to have had a drug reaction to Azathioprine. Please stop taking azothioprine. You have had medications prescribed as noted below. You have had appointments made as noted below. Please STOP taking azothioprine. Please continue using triamcinolone cream for your eczema as previously directed. A followup appointment is being made for you with your PCP, Dr. Reis. You should receive a call to confirm your appointment. If you do not receive a call within 48 hours, or need to cancel/change your appointment, please call their office at . A followup appointment is being made for you with your rink rat, Dr. Horton. You should receive a call to confirm your appointment. If you do not receive a call within 48 hours, or need to cancel/change your appointment, please call their office at [phone]. If you develop any recurrent, new, or worsening symptoms including fever, chills, sweats, worsening rash, abdominal pain, chest pain, shortness of breath, difficulty breathing, feeling like you are going to pass out or passing out, weakness, or other new or concerning symptoms please contact your primary care provider at the number above, or call 911 to present to the emergency department for reevaluation. It has been a pleasure caring for you this admission. Pending Studies at Discharge: No Stand-Alone Forms: My [facility] Medications and DC Order Prescriptions: New triamcinolone acetonide 0.1 % ointment 1 appln TOP BID Qty: 80 RF: 0 Continued calcitriol 0.25 mcg capsule 0.25 mcg PO Q2D RF: 0 ranitidine HCl 150 mg capsule 150 mg PO HS RF: 0 risperidone 1 mg tablet 1 mg PO HS RF: 0 sertraline 100 mg tablet 100 mg PO QAM RF: 0 tamsulosin 0.4 mg capsule 0.4 mg PO BID RF: 0 diphenhydramine HCl [Benadryl] 25 mg Capsule 25 mg PO HS PRN (Reason: Allergy Symptoms) RF: 0 One-A-Day Men's Multivitamin 400-20-300 mcg Tablet 1 tab PO DAILY RF: 0 Discontinued azathioprine 100 mg tablet 100 mg PO DAILY RF: 0 Discharge Orders: Discharge Order (Routine); Ordered 12/29/18 Ordered By: Anselmo Crooks Admission Data Admit Date/Time: 12/27/18 14:32 Attending Provider: Sammy Gaitan Admit Provider: Concepción Hoffman Primary Care Provider: César Reis Other Providers: Navjot Fernandez ; Concepción Hoffman Other Interventions: Discharge Summary Assessment (RN) Last Done: 12/29/18 16:16 DC Date/Time DO NOT enter until pt leaves facility: 12/29/18 17:05 Supervising Physician Co-Signing Physician Notes I personally examined the patient and verified all feng points of history and exam, discussed case, and agree with decision making with Dr Crooks. Feeling better. No fevers no diarrhea. Able to eat and drink okay. Would like to go home. Vitals noted, in general he is awake and alert pleasant no distress. Scaling rashes noted. No focal neuro deficits. Breathing unlabored no accessory muscle use good effort. Diarrhea/feverimproved/self resolved. Stable for discharge to home, close outpatient Derm follow-up, off of azathioprine. Resident Activity Tracking Resident Involvement: Resident Care Provided Care Provided: Adult Hospital Medicine
== END 2018-12-29 17:05 | disposition home or self-care (01) | DRG 683 ==
LOC: ED 08:59 → SUATTDRO 14:32 → 2N 14:32
DX: N40.0 Benign prostatic hyperplasia without lower urinary tract symptoms; F25.0 Schizoaffective disorder, bipolar type; E86.0 Dehydration; D63.1 Anemia in chronic kidney disease; N17.9 Acute kidney failure, unspecified; Z86.19 Personal history of other infectious and parasitic diseases; R29.6 Repeated falls; Z79.899 Other long term (current) drug therapy; L30.8 Other specified dermatitis; I95.9 Hypotension, unspecified; K21.9 Gastro-esophageal reflux disease without esophagitis; H92.01 Otalgia, right ear; D69.6 Thrombocytopenia, unspecified; N18.3 Chronic kidney disease, stage 3 (moderate); N39.0 Urinary tract infection, site not specified; F79 Unspecified intellectual disabilities; T45.1X1A Poisoning by antineoplastic and immunosuppressive drugs, accidental (unintentional), initial encounter; K52.1 Toxic gastroenteritis and colitis